=== PATIENT | female | born 1965 | race Caucasian/White ===

== ENCOUNTER 2016-07-26 09:08 | Emergency (ER) | payer OTHER ==
[2016-07-26 09:33] VITALS: BP 133/64
--- NOTE | 2016-07-26 10:26 | UC ---
Throat Pain/Nasal Nasim HPI - HPI Summary HPI Summary: complaint of nasal congestion , sore throat and cough that started 9 days ago cough has become productive and keep her up at night frequent headaches pain in her face and forehead for the last 2 days ears are mildly painful denies shortness of breath and wheezing has been taking sudafed with minimal relief has been using her nebulizer for coughing fits for several days 1xday - History of Current Complaint Chief Complaint: UCRespiratory Stated Complaint: UPPER RESPIRATORY Time Seen by Provider: 07/26/16 10:15 Hx Obtained From: Patient Hx Last Menstrual Period: 1.5weeks - Allergies/Home Medications Allergies/Adverse Reactions: Allergies Allergy/AdvReac Type Severity Reaction Status Date / Time Sulfa Drugs Allergy Severe Hives Verified 07/26/16 09:33 Clarithromycin [From Biaxin] Allergy Intermediate facial Verified 07/26/16 09:33 flushing Levofloxacin [From Levaquin] Allergy Intermediate facial Verified 07/26/16 09:33 flushing Aspirin Allergy See Comment Verified 07/26/16 09:34 Pregabalin [From Lyrica] Allergy See Comment Verified 07/26/16 09:35 Home Medications: Home Medications Albuterol 2.5MG/3ML (0.083%)* [Ventolin 2.5 MG/3 ML NEB.COLE*] 2.5 mg INH Q12H [History Confirmed 07/26/16] Ibuprofen TAB* [Motrin TAB* 800 MG] 1 tab PO BID 07/26/16 [History Confirmed 02/01] PMH/Surg Hx/FS Hx/Imm Hx Previously Healthy: Yes Endocrine History Of: Reports: Thyroid Disease Denies: Diabetes Cardiovascular History Of: Reports: Cardiac Disorders - sinus tach Respiratory History Of: Reports: Asthma, Pneumonia Denies: COPD, Pulmonary Embolism Psychological History Of: Denies: Schizophrenia Cancer History Of: Denies: Lung Cancer - Surgical History Surgical History: Yes Surgery Procedure, Year, and Place: septoplasty,, appendectomy, radiofrequency tx in neck. Breast augmentation 2006. sinus surgery 10/31 with tubes in ears - Family History Known Family History: Positive: Hypertension, Respiratory Disease - copd, asthma Negative: Cardiac Disease - Social History Occupation: Employed Full-time Lives: With Family Alcohol Use: Occasionally Substance Use Type: None Smoking Status (MU): Never Smoked Tobacco Review of Systems Constitutional: Negative Skin: Negative Eyes: Negative ENT: Sore Throat, Ear Ache, Nasal Discharge Respiratory: Cough Cardiovascular: Negative Gastrointestinal: Negative Genitourinary: Negative Motor: Negative Neurovascular: Negative Musculoskeletal: Negative Neurological: Headache Psychological: Negative All Other Systems Reviewed And Are Negative: Yes Physical Exam Triage Information Reviewed: Yes Appearance: No Pain Distress, Well-Nourished Vital Signs: Initial Vital Signs Temp 99.2 F 07/26/16 09:24 Pulse 66 07/26/16 09:24 Resp 18 07/26/16 09:24 BP 133/64 07/26/16 09:24 Pulse Ox 99 07/26/16 09:24 Vital Signs Reviewed: Yes Eyes: Positive: Conjunctiva Clear ENT: Positive: Pharyngeal erythema, Nasal congestion, Nasal drainage, TMs normal - ears tubes visualized bilaterally, Other: - maxillary sinus tenderness Neck: Positive: No Lymphadenopathy Respiratory: Positive: Lungs clear, Normal breath sounds, No respiratory distress. Negative: Rhonchi, Wheezing Cardiovascular: Positive: RRR, No Murmur, Pulses Normal Abdomen Description: Positive: Nontender, Soft Bowel Sounds: Positive: Present Musculoskeletal: Positive: No Edema Neurological: Positive: Alert Psychological Exam: Normal Skin Exam: Normal Throat Pain/Nasal Course/Dx - Course Course Of Treatment: exam completed. no wheezing or rhonchi. refuses prednisone at this time. will treat for sinusitis will followup with PCP if asthma worsens - Differential Dx/Diagnosis Differential Diagnosis/HQI/PQRI: Sinusitis, Other - asthma exacerbation Provider Diagnoses: sinusitis Discharge - Discharge Plan Condition: Stable Disposition: HOME Prescriptions: Amoxicillin/Clavulanate TAB* [Augmentin TAB 875*] 875 mg PO BID #20 tab Patient Education Materials: Sinusitis (ED), Asthma (ED) Referrals: Davey Toney DO [Primary Care Provider] - Additional Instructions: Please take antibiotic as directed Use your albuterol inhaler every 4-6 hours when needed for wheezing, shortness of breath or uncontrolled coughing. Increase fluids and rest Take acetaminophen or ibuprofen for fever or pain Please review your discharge instructions. If your symptoms do not improve please call your primary care provider or return to urgent care.
== END 2016-07-26 10:32 | disposition home or self-care (01) ==
LOC: UCCORT 09:08
DX: J32.9 Chronic sinusitis, unspecified (principal); Z88.6 Allergy status to analgesic agent; Z88.1 Allergy status to other antibiotic agents; Z88.2 Allergy status to sulfonamides; E07.9 Disorder of thyroid, unspecified; R00.0 Tachycardia, unspecified
CPT/HCPCS: 99212; G0463

== ENCOUNTER 2017-03-18 18:33 | Emergency (ER) | payer OTHER ==
[2017-03-18 19:33] VITALS: BP 148/73
--- NOTE | 2017-03-18 20:35 | UC ---
Throat Pain/Nasal Nasim HPI - HPI Summary HPI Summary: SIX DAYS OF WORSENING BILATERAL EAR PRESSURE AND PAIN. HAD UPPER RESPIRATORY INFECTION A MONTH AGO, SYMPTOMS WERE RESOLVING, NOW EAR PRESSURE IS WORSENING. PATEINT OF DR CONN, HAD TUBES PUT IN SEVERAL YEARS AGO. - History of Current Complaint Chief Complaint: UCEar Stated Complaint: EAR COMPLAINT Time Seen by Provider: 03/18/17 20:10 Hx Obtained From: Patient Hx Last Menstrual Period: 1.5weeks Onset/Duration: Gradual Onset, Lasting Weeks, Worse Since - 6 DAYS Severity: Moderate Cough: Nonproductive Associated Signs & Symptoms: Positive: Sinus Discomfort, Nasal Discharge - Epiglottits Risk Factors Epiglottis Risk Factors: Negative - Allergies/Home Medications Allergies/Adverse Reactions: Allergies Allergy/AdvReac Type Severity Reaction Status Date / Time Sulfa Drugs Allergy Severe Hives Verified 03/18/17 19:33 Clarithromycin [From Biaxin] Allergy Intermediate facial Verified 03/18/17 19:33 flushing Levofloxacin [From Levaquin] Allergy Intermediate facial Verified 03/18/17 19:33 flushing Aspirin Allergy See Comment Verified 03/18/17 19:33 Pregabalin [From Lyrica] Allergy See Comment Verified 03/18/17 19:33 Home Medications: Home Medications Nabumetone TAB* [Relafen TAB*] 500 mg PO BID 03/18/17 [History Confirmed ] PMH/Surg Hx/FS Hx/Imm Hx Previously Healthy: Yes - Surgical History Surgical History: Yes Surgery Procedure, Year, and Place: septoplasty,, appendectomy, radiofrequency tx in neck. Breast augmentation 2006. sinus surgery 10/31 with tubes in ears - Family History Known Family History: Positive: Hypertension, Respiratory Disease - copd, asthma Negative: Cardiac Disease - Social History Occupation: Employed Full-time Lives: With Family Alcohol Use: Occasionally Substance Use Type: None Smoking Status (MU): Never Smoked Tobacco Review of Systems Constitutional: Negative Skin: Negative ENT: Ear Ache, Sinus Congestion, Sinus Pain/Tenderness Respiratory: Cough Cardiovascular: Negative Gastrointestinal: Negative Genitourinary: Negative Motor: Negative Neurovascular: Negative Musculoskeletal: Negative Neurological: Negative Psychological: Negative Is Patient Immunocompromised?: No All Other Systems Reviewed And Are Negative: Yes Physical Exam Triage Information Reviewed: Yes Appearance: No Pain Distress, Well-Nourished, Ill-Appearing - MILDLY Vital Signs: Initial Vital Signs Temp 99.3 F 03/18/17 19:29 Pulse 60 03/18/17 19:29 Resp 16 03/18/17 19:29 BP 148/73 03/18/17 19:29 Pulse Ox 100 03/18/17 19:29 Vital Signs Reviewed: Yes Eye Exam: Normal ENT: Positive: Pharynx normal, Nasal congestion, Nasal drainage, TM bulging - BILATERAL, TM dull - BILATERAL Dental Exam: Normal Neck exam: Normal Neck: Positive: Supple, Nontender, No Lymphadenopathy Respiratory Exam: Normal Respiratory: Positive: Chest non-tender, Lungs clear, Normal breath sounds, No respiratory distress, No accessory muscle use Cardiovascular Exam: Normal Cardiovascular: Positive: RRR, No Murmur, Pulses Normal, Brisk Capillary Refill Abdominal Exam: Normal Musculoskeletal Exam: Normal Musculoskeletal: Positive: Strength Intact, ROM Intact Neurological Exam: Normal Psychological Exam: Normal Skin Exam: Normal Throat Pain/Nasal Course/Dx - Differential Dx/Diagnosis Differential Diagnosis/HQI/PQRI: Pharyngitis, Sinusitis, Tonsillitis, URI Provider Diagnoses: SINUSITIS; BILATERAL OTITIS MEDIA Discharge - Discharge Plan Condition: Stable Disposition: HOME Prescriptions: DOXYcycline CAP(*) [DOXYcycline 100MG CAP(*)] 100 mg PO BID #20 cap Fluticasone NASAL SPRAY 50MCG* [Flonase NASAL SPRAY 50MCG*] 2 spray BOTH NARES DAILY #1 btl Patient Education Materials: Sinusitis (ED), Serous Otitis Media (ED) Referrals: Stuart Billingsley MD [Medical Doctor] - Davey Toney DO [Primary Care Provider] -
== END 2017-03-18 20:34 | disposition home or self-care (01) ==
LOC: UCCORT 18:33
DX: H66.93 Otitis media, unspecified, bilateral (principal); J32.9 Chronic sinusitis, unspecified; Z88.6 Allergy status to analgesic agent; Z88.1 Allergy status to other antibiotic agents; Z88.2 Allergy status to sulfonamides
CPT/HCPCS: 99212; G0463

== ENCOUNTER 2017-08-03 19:04 | Emergency (ER) | payer BC, OTHER ==
[2017-08-03 20:05] VITALS: BP 132/76
--- NOTE | 2017-08-03 20:43 | UC ---
Throat Pain/Nasal Nasim HPI - HPI Summary HPI Summary: Patient to urgent care [facility] complaining of chills myalgia and sore throat feels exactly like her previous strep pharyngitis. Patient has chronic sinus pain and this does not feel like usual postnasal drip discomfort - History of Current Complaint Chief Complaint: UCGeneralIllness Stated Complaint: SORE THROAT Time Seen by Provider: 08/03/17 20:32 Hx Obtained From: Patient Hx Last Menstrual Period: 1.5weeks ?: No Onset/Duration: Sudden Onset, Lasting Days - 1 Severity: Moderate Pain Intensity: 7 Pain Scale Used: 0-10 Numeric Cough: None Associated Signs & Symptoms: Positive: Sinus Discomfort - Chronic Related History: Prior ENT Surgery - Allergies/Home Medications Allergies/Adverse Reactions: Allergies Allergy/AdvReac Type Severity Reaction Status Date / Time aspirin Allergy Tinnitus Verified 08/03/17 20:06 clarithromycin Allergy Facial Verified 08/03/17 20:06 Redness/Flushing levofloxacin Allergy Facial Verified 08/03/17 20:06 Redness/Flushing pregabalin Allergy Swelling Verified 08/03/17 20:06 Sulfa (Sulfonamide Allergy Hives Verified 08/03/17 20:06 Antibiotics) Home Medications: Home Medications Ipratropium [place] [Ipratropium [place]] 0.03 % NA DAILY 08/03/17 [History Confirmed 08/03/17] PMH/Surg Hx/FS Hx/Imm Hx Previously Healthy: No - chronic muscular pain Endocrine History: Hypothyroidism Respiratory History: Asthma - Surgical History Surgical History: Yes Surgery Procedure, Year, and Place: septoplasty,, appendectomy, radiofrequency tx in neck. Breast augmentation 2006. sinus surgery 10/31 with tubes in ears - Family History Known Family History: Positive: Hypertension, Respiratory Disease - copd, asthma Negative: Cardiac Disease - Social History Occupation: Employed Full-time Lives: With Family Alcohol Use: Occasionally Substance Use Type: None Smoking Status (MU): Never Smoked Tobacco Review of Systems Constitutional: Chills, Fatigue Skin: Negative Eyes: Negative ENT: Sore Throat Respiratory: Negative Cardiovascular: Negative Gastrointestinal: Negative Genitourinary: Negative Motor: Negative Neurovascular: Negative Musculoskeletal: Negative Neurological: Negative Psychological: Negative Is Patient Immunocompromised?: No All Other Systems Reviewed And Are Negative: Yes Physical Exam Triage Information Reviewed: Yes Appearance: Well-Appearing, No Pain Distress, Well-Nourished Vital Signs: Initial Vital Signs Temp 99.2 F 08/03/17 19:54 Pulse 76 08/03/17 19:54 Resp 15 08/03/17 19:54 BP 132/76 08/03/17 19:54 Pulse Ox 100 08/03/17 19:54 Vital Signs Reviewed: Yes Eye Exam: Normal Eyes: Positive: Conjunctiva Clear ENT Exam: Normal ENT: Positive: Normal ENT inspection, Hearing grossly normal, Pharynx normal, Nasal congestion, TMs normal, Sinus tenderness, Uvula midline. Negative: Tonsillar swelling, Tonsillar exudate, Trismus, Muffled voice, Hoarse voice, Dental tenderness Dental Exam: Normal Neck exam: Normal Neck: Positive: Supple, Nontender, No Lymphadenopathy Respiratory Exam: Normal Respiratory: Positive: Chest non-tender, Lungs clear, Normal breath sounds, No respiratory distress, No accessory muscle use Cardiovascular Exam: Normal Cardiovascular: Positive: RRR, No Murmur, Pulses Normal, Brisk Capillary Refill Musculoskeletal Exam: Normal Musculoskeletal: Positive: Strength Intact, ROM Intact, No Edema Neurological Exam: Normal Neurological: Positive: Alert, Muscle Tone Normal Psychological Exam: Normal Skin Exam: Normal Diagnostics - Laboratory Diagnostic Studies Completed/Ordered: Rapid strep negative Throat Pain/Nasal Course/Dx - Course Assessment/Plan: Continue current treatment, Tylenol ibuprofen for pain follow with PCP when necessary increase fluids and rest - Differential Dx/Diagnosis Provider Diagnoses: Sore throat Discharge - Sign-Out/Discharge Documenting (check all that apply): Discharge - Discharge Plan Condition: Stable Disposition: HOME Patient Education Materials: Viral Syndrome (ED), Postnasal Drip (DC) Referrals: Davey Toney DO [Primary Care Provider] - If Needed - Billing Disposition and Condition Condition: STABLE Disposition: HOME
== END 2017-08-03 21:05 | disposition home or self-care (01) ==
LOC: UCCORT 19:04
DX: J02.9 Acute pharyngitis, unspecified (principal); Z88.6 Allergy status to analgesic agent; Z88.1 Allergy status to other antibiotic agents; Z88.2 Allergy status to sulfonamides; Z88.8 Allergy status to other drugs, medicaments and biological substances
CPT/HCPCS: 87651; 99212; G0463

== ENCOUNTER 2018-06-15 09:32 | Emergency (ER) | payer BC ==
--- OUTSIDE RECORDS SUMMARY | 2018-06-15 09:41 | XMS REPORT | Continuity of Care Document ---
:1965 External Reference #:[id number] Author Name Davey Toney DO Address [address] [place] [address] Care Team Providers Name Role Phone Davey Toney DO Care Team Information Assistive Technology Specialist Unavailable Payers Date Identification Numbers Payment Provider Subscriber Effective: 2018 Policy Number: [id number] [facility] Ppo Theresa Frannie Jeremias PayID: [id number] [address] [address] [place] [address] Effective: 2014 Policy Number: [id number] DO Not Use - Pomcdanielle Mcdowell Expires: 2017 PayID: [id number] [address] [place] [address] Advance Directives Description No Information Available Problems Date Description Provider Status Onset: 04/09/2014 Hypothyroidism Davey Toney DO Active Onset: 04/09/2014 Raynaud's disease Davey Toney DO Active Onset: 04/09/2014 Cervical disc disorder Davey Toney DO Active Onset: 04/09/2014 Obstructive sleep apnea syndrome Davey Toney DO Active Onset: 04/09/2014 Collagen disease Davey Toney DO Active Onset: 04/09/2014 Rheumatoid arthritis Davey Toney DO Active Onset: 04/09/2014 Irritable bowel syndrome Davey Toney DO Active Onset: 04/09/2014 Meniere's disease Davey Toney DO Active Onset: 04/09/2014 Chronic sinusitis Davey Toney DO Active Onset: 04/09/2014 Chronic fatigue syndrome Davey Toney DO Active Onset: 04/09/2014 Allergic rhinitis Davey Toney DO Active Onset: 04/09/2014 Asthma without status asthmaticus Davey Toney DO Active Onset: 04/09/2014 Fibromyositis Davey Toney DO Active Onset: 04/09/2014 Gastroesophageal reflux disease Davey Toney DO Active Onset: 05/15/2014 Myalgia & Myositis Unspecified Davey Toney DO Active Onset: 01/07/2015 Fibromyalgia Davey Toney DO Active Onset: 05/15/2014 Peptic reflux disease Davey Toney DO Active Onset: 05/15/2014 Hypothyroidism Davey Toney DO Active Onset: 05/15/2014 Allergic rhinitis due to pollen Davey Toney DO Active Family History Date Family Member(s) Observation Comments Father Tuberculosis : (age 50 Father due to Cancer, Years) Pancreatic Mother Hypertension Mother COPD Mother Obesity First Brother Asthma Maternal Grandmother Diabetes, Adult Maternal Grandmother Heart Disease Maternal Grandmother Obesity Maternal Aunts Diabetes, Adult Maternal Aunts Cancer Social History Type Date Description Comments Sex Unknown Marital Status 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 [employer] ETOH Use Consumes 3 glasses of wine per week Recreational Drug Use Denies Drug Use Allergies, Adverse Reactions, Alerts Date Description Reaction Status Severity Comments 04/09/2014 Biaxin Active 04/09/2014 Levaquin Active 04/09/2014 Aspirin Active 04/09/2014 Lyrica Active 04/09/2014 Indomethacin Active 04/09/2014 Citalopram Active 04/09/2014 Theophylline Active 01/28/2015 Sulfa Drugs Active Medications Medication Date Status Form Strength Qnty SIG Indications Ordering Provider Metaxalone 05/16 Active Tablets 800mg 30tab 1 By M54.2 Feng, s Mouth Davey, Every DO Night AT Bedtime Prednisone 01/04 Active Tablets 5mg 1 by [place], mouth Jianghong every day DR Yung Metformin HCL 12/20 Active Tablets 500mg 90tab Take 1 Feng, s Tablet By Davey Mouth DO Every Day Pantoprazole 11/[address] 40mg 30tab Take 1 Toney, Sodium s Tablet By Davey, Mouth DO Every Day Furosemide 11/10 Active Tablets 20mg 90tab 1 By Feng s Mouth Davey, Every Day DO Albuterol Sulfate 07/03 Active Nebulizer (2.5mg/3M 75ml use 1 L) 0.083% vial via Davey, nebulizer DO every 4 hours as needed for cough, for shortness of breath, wheezing Valacyclovir HCL 12/19 Active Tablets 1gm 12tab Take 2 Feng s Tablets Davey, By Mouth DO Twice A Day X 1 Day as Needed Outbreak Of Cold Sores Pramipexole Active Tablets 0.125mg 180ta 2 po qhs Unknown Dihydrochloride / bs prn restless legs Meclizine HCL Active Tablets 25mg 60tab take 1/2 Unknown / s to 1 pill up to three times a day as needed for dizziness . Ventolin HFA Active Aerosol 108(90Bas 3unit 2 puffs e) s by mouth Davey, mcg/Act every 4 DO hours as needed Vitamin D3 Super Active Tablets 2000Unit 1 by Unknown Strength / mouth every day Levothyroxine Active Tablets 75mcg 90tab 1 By Raudel Toney s Mouth Davey, Every Day DO Nabumetone Active Tablets 500mg take one Unknown tablet by mouth twice daily with food Calcium/Magnesium Active Tablets 1 PO qd Unknown /Zinc / Oxycodone HCL 11/29 Hx Tablets 5mg 30tab 1 by Feng s mouth Davey, - every 8 DO 06/06 hours needed for severe pain Doxycycline 10/23 Hx Tablets 100mg 42tab 1 by Feng Monohydrate s mouth Davey, - twice a DO Azithromycin 04/26 Hx Tablets 500mg 7tabs 1 by J01.90 Toney mouth Davey, - every day DO 05/03 Amoxicillin/Clavu 03/24 Hx Tablets ER 1000-62.5 20tab 1 po bid Feng lanate 12HR mg s Davey, ER - DO 04/03 Prednisone 03/22 Hx Tablets 20mg 10tab 2 by J01.90 Toney, s mouth Davey, - with food DO 03/27 once a /2016 day Amoxicillin/Clavu 02/10 Hx Tablets 875-125mg 14tab 1 by Feng lanate Potassium s mouth Davey, - twice a DO 02/17 day x days Doxycycline 09/16 Hx Tablets 100mg 14tab 1 by Feng Monohydrate s mouth Davey, - twice a DO Amoxicillin/Clavu 06/15 Hx Tablets 875-125mg 20tab 1 by J01.90 Feng lanate Potassium s mouth Davey, - twice a DO Crutch/Aluminum/A 02/02 Hx Misc 1unit fit M25.571 Feng dult/Push-Button s crutches Davey, Adj - to DO 02/07 for ambulatio n due to r foot sprain Prednisone 09/19 Hx Tablets 20mg 5tabs 1 by J01.90 Feng, mouth Davey, - with food DO 09/29 once a day Augmentin 09/02 Hx Tablets 875-125mg 20tab 1 by Feng, s mouth Davey, - twice a DO 09/12 day for 10 days Wrist 07/28 Hx Misc 1unit apply to M25.539 Feng, Splint/Cock-Up/LE /2015 s l wrist Davey, FT/Canvas/Medium - at night DO 08/02 and during the day during aggravati ng activitie s Wrist 07/28 Hx Misc 1unit apply to M25.539 Feng Splint/Cock-Up/RI /2015 s r wrist Davey, GHT/Canvas/Medium - at night DO 08/02 and during the day during aggravati ng activitie s Skelaxin 07/14 Hx Tablets 800mg 30tab 1 By M54.2 Feng, s Mouth Davey, - Every DO 05/16 Night AT /2019 Bedtime Azithromycin 07/03 Hx Tablets 500mg 7tabs 1 by J01.90 Feng, mouth Davey, - every day DO 07/10 Prednisone 07/02 Hx Tablets 20mg 14tab 2 by Feng s mouth Davey, - with food DO 07/09 once a day in the morning Azithromycin 06/03 Hx Tablets 500mg 7tabs 1 by J01.90 Feng mouth Davey, - every day DO 06/10 Azithromycin 05/20 Hx Tablets 500mg 7tabs 1 by J01.90 Feng mouth Davey, - every day DO 05/27 Augmentin 05/07 Hx Tablets 875-125mg 20tab 1 by Feng s mouth Davey, - twice a DO 05/17 day 10 days Prednisone 04/17 Hx Tablets 20mg 14tab 2 by J45.901 Valeri Sol christian MD - daily, 04/24 take with food, watch for stomach upset, avoid alcohol Doxycycline 04/08 Hx Tablets 100mg 28tab 1 by J20.9 Leslie Toneyate s mouth Davey, - twice a DO Doxycycline 03/25 Hx Tablets 100mg 14tab 1 by J20.9 Feng Monohydrate s mouth Davey, - twice a DO Doxycycline 01/28 Hx Tablets 100mg 20tab 1 by Lora Toney s mouth Davey, - twice a DO Gentamicin 01/28 Hx Solution 0.3% 1unit 1-2 drops H10.9 Feng s in the Davey, - eyes DO 02/02 every hours as needed Gabapentin 12/16 Hx Tablets 600mg 90tab Take 1 M79.7 Feng s Tablet By Davey, - Mouth DO 02/02 Times Daily Doxycycline 12/06 Hx Tablets 100mg 42tab 1 by Lora Toney s mouth Davey, - twice a DO 12/27 day x days Gabapentin 11/19 Hx Capsules 300mg 60cap 2 by 729.1 Feng s mouth Davey, - twice a DO Fluticasone 11/19 Hx Suspension 50mcg/Act 1unit 1 spray J30.9 Feng, Propionate s each Davey, - nostril DO 06/06 1-2 times /2018 a day Voltaren 10/24 Hx Gel 1% 3unit Apply 4 719.46 Toney, s grams to Davey, - the knees DO 11/19 up to every 6 hours as needed. Triamterene/Scotrun 10/08 Hx Tablets 37.5-25mg 90tab 1 by Fneg chlorothiazide s mouth Davey, - every day DO 06/30 Hydrocodone-Aceta 08/29 Hx Tablets 10-325mg 90tab 1 by 729.1 Toney, minophen s mouth Davey, - every 8 DO 10/24 hours needed Amitriptyline HCL 08/19 Hx Tablets 25mg 30tab 1 by Toney, s mouth Davey, - every DO 10/08 night at bedtime Hydrocodone-Aceta 07/08 Hx Tablets 7.5-325mg 90tab 1 by 729.1 Toney, minophen s mouth Davey, - every 8 DO 08/29 hours needed Hydrocodone-Aceta 06/13 Hx Tablets 5-325mg 30tab 1 every 729.1 Toney, minophen s 12 hours Davey, - as needed DO 07/08 Hydrocodone-Aceta 06/13 Hx Tablets 5-325mg 30tab 1 every Toney, minophen s 12 hours Davey, - as needed DO 07/31 Omeprazole 04/[address] 40mg 30cap Take 1 , s Capsule Davey, - By Mouth DO 11/29 Every Ventolin HFA Hx Aerosol 108mcg/Ac 3unit 2 puffs Unknown /0000 t s by mouth - every 4 08/19 hours needed Triamterene/Scotrun Hx Tablets 37.5-25 45tab 1 by Unknown chlorothiazide / s mouth - every 08/19 Orencia Hx Solution 250mg 1unit 125 mL Unknown /0000 Rec s once a - week- per 07/31 Rheumatol /2014 ogy Lo/Ovral-28 Hx Tablets 30tab 1 by Unknown /0000 s mouth - every day 07/28 Chlorpheniramine 00 Hx Tablets 4mg 1 po Unknown Maleate /0000 daily - 08/29 Ibuprofen Hx Tablets 200mg Up to 4 Unknown /0000 po tid - prn pain 06/30 Anoro Ellipta Hx Aerosol 62.5-25mc 1unit one puff Toney, /0000 g/Inh s daily Davey, - DO 02/11 Orencia Hx Solution 250mg 1unit 125 mL Unknown /0000 Rec s once a - week- per 08/29 Rheumatol ogy Loratadine Hx Tablets 10mg 1 by Unknown /0000 mouth - every day 01/17 Famotidine Hx Tablets 20mg 1 by Unknown /0000 mouth - every day 01/17 Triamterene/Scotrun Hx Tablets 37.5-25 45tab 1 by Feng chlorothiazide /0000 s mouth Davey, - every DO 10/08 Orencia Hx Solution 250mg 1unit 125 mL Unknown /0000 Rec s once a - week- per 09/16 Rheumat ogy Biotin Hx Capsules 5000mcg 1 by Unknown /0000 mouth - every day 01/17 Vitamin B12 Hx Tablets 1 by Unknown /0000 mouth - every day 06/30 Phentermine HCL Hx Capsules 30mg 1 by Unknown /0000 mouth - every day 06/30 D[address]lofenac Sodium Hx Tablets DR 75mg 1 po bid Unknown /0000 - 10/25 Magnesium Hx Capsules 500mg 1 by Unknown /0000 mouth - every day 01/17 Zinc Hx Tablets 50mg 1 by Unknown /0000 mouth - every day 01/17 Medications Administered in Office Medication Date Status Form Strength Qnty SIG Indications Ordering Provider Depo Medrol 80 Administered Injection MG Marycruz Toney DO Immunizations CPT Code Status Date Vaccine Lot # [id number] Given 06/06/2018 Pneumococcal 23 Immunization Adult Or [id number] Immunosuppressed Patient 75644 Given 06/06/2018 Tdap (Adacel) Ages 7 And Above Only [id number] Given 02/22/2018 Influenza Vac, Quadrivalent, Split, 0.5mL Dosage, Im Use [id number] Given 03/13/2017 Afluria Imunization Q2035 Refused 01/18/2018 Afluria Imunization Vital Signs Date Vital Result Comment 06/06/2018 8:35am Weight 204.00 lb Heart Rate 76 /min BP Systolic 154 mmHg BP Diastolic 78 mmHg Respiratory Rate 18 /min Height 64.5 inches 5'4.50" BMI (Body Mass Index) 34.5 kg/m2 05/16/2018 8:36am Weight 204.00 lb Heart Rate 72 /min BP Systolic 118 mmHg BP Diastolic 68 mmHg Respiratory Rate 18 /min 04/04/2018 8:36am Weight 202.00 lb Heart Rate 76 /min BP Systolic 108 mmHg BP Diastolic 68 mmHg Respiratory Rate 18 /min Height 64.5 inches 5'4.50" BMI (Body Mass Index) 34.1 kg/m2 01/18/2018 4:22pm Weight 198.00 lb Heart Rate 74 /min BP Systolic 116 mmHg BP Diastolic 62 mmHg Respiratory Rate 17 /min Height 64.5 inches 5'4.50" BMI (Body Mass Index) 33.5 kg/m2 12/20/2017 8:12am Body Temperature 98.3 F Weight 194.00 lb Heart Rate 78 /min BP Systolic 112 mmHg BP Diastolic 56 mmHg Respiratory Rate 18 /min Height 64.5 inches 5'4.50" BMI (Body Mass Index) 32.8 kg/m2 11/29/2017 8:32am Weight 194.00 lb Heart Rate 72 /min BP Systolic 110 mmHg BP Diastolic 58 mmHg Respiratory Rate 17 /min Height 64.5 inches 5'4.50" BMI (Body Mass Index) 32.8 kg/m2 10/25/2017 8:33am Weight 193.00 lb Heart Rate 84 /min BP Systolic 138 mmHg BP Diastolic 78 mmHg Respiratory Rate 17 /min Height 64.5 inches 5'4.50" BMI (Body Mass Index) 32.6 kg/m2 08/09/2017 8:40am Weight 194.00 lb Heart Rate 70 /min BP Systolic 128 mmHg BP Diastolic 74 mmHg Respiratory Rate 18 /min Height 64.5 inches 5'4.50" BMI (Body Mass Index) 32.8 kg/m2 06/21/2017 8:38am Weight 194.00 lb Heart Rate 72 /min BP Systolic 118 mmHg BP Diastolic 74 mmHg Respiratory Rate 18 /min Height 64.5 inches 5'4.50" BMI (Body Mass Index) 32.8 kg/m2 05/24/2017 8:39am Weight 197.00 lb Heart Rate 68 /min BP Systolic 118 mmHg BP Diastolic 64 mmHg Respiratory Rate 17 /min Height 64.5 inches 5'4.50" BMI (Body Mass Index) 33.3 kg/m2 04/26/2017 8:37am Weight 196.00 lb Heart Rate 78 /min BP Systolic 96 mmHg BP Diastolic 58 mmHg Respiratory Rate 18 /min Height 64.5 inches 5'4.50" BMI (Body Mass Index) 33.1 kg/m2 03/22/2017 8:34am Weight 193.00 lb Heart Rate 78 /min BP Systolic 132 mmHg BP Diastolic 76 mmHg Respiratory Rate 18 /min Height 64.5 inches 5'4.50" BMI (Body Mass Index) 32.6 kg/m2 01/25/2017 8:38am Weight 195.00 lb Heart Rate 76 /min BP Systolic 110 mmHg BP Diastolic 62 mmHg Respiratory Rate 18 /min Height 64.5 inches 5'4.50" BMI (Body Mass Index) 33.0 kg/m2 12/21/2016 8:44am Weight 195.00 lb Heart Rate 80 /min BP Systolic 92 mmHg BP Diastolic 52 mmHg Respiratory Rate 17 /min Height 64.5 inches 5'4.50" BMI (Body Mass Index) 33.0 kg/m2 11/18/2016 8:31am Weight 194.00 lb Heart Rate 70 /min BP Systolic 128 mmHg BP Diastolic 70 mmHg Respiratory Rate 17 /min Height 64.5 inches 5'4.50" BMI (Body Mass Index) 32.8 kg/m2 09/16/2016 8:32am Weight 193.00 lb Heart Rate 88 /min BP Systolic 120 mmHg BP Diastolic 66 mmHg Respiratory Rate 18 /min Height 64.5 inches 5'4.50" BMI (Body Mass Index) 32.6 kg/m2 08/12/2016 4:05pm Weight 194.00 lb Heart Rate 74 /min BP Systolic 120 mmHg BP Diastolic 80 mmHg Respiratory Rate 18 /min Height 64.5 inches 5'4.50" BMI (Body Mass Index) 32.8 kg/m2 07/06/2016 8:33am Weight 194.00 lb Heart Rate 64 /min BP Systolic 110 mmHg BP Diastolic 68 mmHg Respiratory Rate 18 /min Height 64.5 inches 5'4.50" (01/2016) BMI (Body Mass Index) 32.8 kg/m2 06/15/2016 8:35am Weight 192.00 lb Heart Rate 78 /min BP Systolic 124 mmHg BP Diastolic 58 mmHg Respiratory Rate 17 /min Height 64.5 inches 5'4.50" (01/2016) BMI (Body Mass Index) 32.4 kg/m2 04/20/2016 8:37am Weight 192.00 lb Heart Rate 80 /min BP Systolic 126 mmHg BP Diastolic 70 mmHg Respiratory Rate 17 /min Height 64.5 inches 5'4.50" (01/2016) BMI (Body Mass Index) 32.4 kg/m2 03/30/2016 8:34am Weight 192.00 lb Heart Rate 62 /min BP Systolic 116 mmHg BP Diastolic 58 mmHg Respiratory Rate 17 /min Height 64.5 inches 5'4.50" (01/2016) BMI (Body Mass Index) 32.4 kg/m2 03/02/2016 8:34am Weight 188.00 lb Heart Rate 84 /min BP Systolic 98 mmHg BP Diastolic 58 mmHg Respiratory Rate 17 /min Height 64.5 inches 5'4.50" (01/2016) BMI (Body Mass Index) 31.8 kg/m2 2016 8:37am Weight 186.00 lb Heart Rate 68 /min BP Systolic 138 mmHg BP Diastolic 80 mmHg Respiratory Rate 17 /min Height 64.5 inches 5'4.50" (01/2016) BMI (Body Mass Index) 31.4 kg/m2 02/03/2016 8:32am Weight 189.00 lb Heart Rate 76 /min BP Systolic 114 mmHg BP Diastolic 58 mmHg Respiratory Rate 18 /min Height 64.5 inches 5'4.50" (01/2016) BMI (Body Mass Index) 31.9 kg/m2 12/30/2015 8:40am Weight 186.00 lb Heart Rate 72 /min BP Systolic 100 mmHg BP Diastolic 54 mmHg Respiratory Rate 18 /min Height 64.5 inches 5'4.50" BMI (Body Mass Index) 31.4 kg/m2 12/16/2015 8:34am Weight 185.00 lb Heart Rate 76 /min BP Systolic 112 mmHg L/Reg BP Diastolic 72 mmHg L/Reg Respiratory Rate 17 /min Height 64.5 inches 5'4.50" BMI (Body Mass Index) 31.3 kg/m2 12/02/2015 8:36am Weight 181.00 lb Heart Rate 74 /min BP Systolic 88 mmHg BP Diastolic 50 mmHg Respiratory Rate 17 /min Height 64.5 inches 5'4.50" BMI (Body Mass Index) 30.6 kg/m2 11/11/2015 8:36am Weight 185.00 lb Heart Rate 62 /min BP Systolic 122 mmHg BP Diastolic 62 mmHg Respiratory Rate 18 /min Height 64.5 inches 5'4.50" BMI (Body Mass Index) 31.3 kg/m2 10/28/2015 8:35am Weight 182.00 lb Heart Rate 76 /min BP Systolic 120 mmHg BP Diastolic 58 mmHg Respiratory Rate 18 /min Height 64.5 inches 5'4.50" BMI (Body Mass Index) 30.8 kg/m2 10/14/2015 8:39am Weight 180.00 lb Heart Rate 84 /min BP Systolic 102 mmHg BP Diastolic 52 mmHg Respiratory Rate 18 /min Height 64.5 inches 5'4.50" BMI (Body Mass Index) 30.4 kg/m2 09/30/2015 8:29am Weight 177.00 lb Heart Rate 90 /min BP Systolic 108 mmHg BP Diastolic 62 mmHg Respiratory Rate 18 /min Height 64.5 inches 5'4.50" BMI (Body Mass Index) 29.9 kg/m2 09/20/2015 8:48am Weight 176.06 lb Heart Rate 68 /min BP Systolic 102 mmHg BP Diastolic 60 mmHg Respiratory Rate 18 /min Height 64.5 inches 5'4.50" BMI (Body Mass Index) 29.8 kg/m2 08/12/2015 8:31am Weight 176.00 lb Heart Rate 80 /min BP Systolic 102 mmHg BP Diastolic 60 mmHg Respiratory Rate 17 /min Height 64.5 inches 5'4.50" BMI (Body Mass Index) 29.7 kg/m2 07/29/2015 8:33am Weight 173.00 lb Heart Rate 84 /min BP Systolic 124 mmHg BP Diastolic 68 mmHg Respiratory Rate 18 /min Height 64.5 inches 5'4.50" BMI (Body Mass Index) 29.2 kg/m2 07/15/2015 8:09am Weight 168.00 lb Heart Rate 74 /min BP Systolic 112 mmHg BP Diastolic 70 mmHg Respiratory Rate 18 /min Height 64.5 inches 5'4.50" BMI (Body Mass Index) 28.4 kg/m2 07/01/2015 8:45am Weight 171.00 lb Heart Rate 68 /min BP Systolic 110 mmHg BP Diastolic 64 mmHg Respiratory Rate 18 /min Height 64.5 inches 5'4.50" BMI (Body Mass Index) 28.9 kg/m2 06/17/2015 8:08am Weight 173.00 lb Heart Rate 78 /min BP Systolic 118 mmHg BP Diastolic 60 mmHg Respiratory Rate 17 /min Height 64.5 inches 5'4.50" BMI (Body Mass Index) 29.2 kg/m2 06/03/2015 8:36am Weight 172.00 lb Heart Rate 94 /min BP Systolic 100 mmHg BP Diastolic 58 mmHg Respiratory Rate 18 /min Height 64.5 inches 5'4.50" BMI (Body Mass Index) 29.1 kg/m2 05/20/2015 8:09am Body Temperature 98.0 F Weight 173.00 lb Heart Rate 84 /min BP Systolic 112 mmHg BP Diastolic 60 mmHg Respiratory Rate 18 /min Height 64.5 inches 5'4.50" O2 % BldC Oximetry 100 % BMI (Body Mass Index) 29.2 kg/m2 05/06/2015 8:07am Weight 171.00 lb Heart Rate 100 /min BP Systolic 122 mmHg BP Diastolic 62 mmHg Respiratory Rate 18 /min Height 64.5 inches 5'4.50" BMI (Body Mass Index) 28.9 kg/m2 04/22/2015 8:16am Body Temperature 98.8 F Weight 173.00 lb Heart Rate 86 /min BP Systolic 110 mmHg BP Diastolic 56 mmHg Respiratory Rate 17 /min Height 64.5 inches 5'4.50" O2 % BldC Oximetry 99 % BMI (Body Mass Index) 29.2 kg/m2 04/17/2015 10:49am Body Temperature 98.5 F Weight 173.00 lb Heart Rate 86 /min BP Systolic 112 mmHg BP Diastolic 70 mmHg Height 64.5 inches 5'4.50" O2 % BldC Oximetry 99 % Ra BMI (Body Mass Index) 29.2 kg/m2 04/08/2015 8:13am Body Temperature 99.9 F Weight 172.00 lb Heart Rate 98 /min BP Systolic 100 mmHg BP Diastolic 68 mmHg Height 64.5 inches 5'4.50" O2 % BldC Oximetry 98 % Ra BMI (Body Mass Index) 29.1 kg/m2 03/25/2015 8:13am Weight 171.00 lb Heart Rate 80 /min BP Systolic 110 mmHg BP Diastolic 60 mmHg Respiratory Rate 18 /min Height 64.5 inches 5'4.50" BMI (Body Mass Index) 28.9 kg/m2 03/11/2015 8:10am Weight 174.00 lb Heart Rate 88 /min BP Systolic 86 mmHg BP Diastolic 48 mmHg BP Systolic Recheck 90 mmHg BP Diastolic Recheck 50 mmHg Respiratory Rate 17 /min 02/25/2015 8:10am Body Temperature 97.0 F Weight 176.00 lb Heart Rate 84 /min BP Systolic 112 mmHg BP Diastolic 64 mmHg Respiratory Rate 18 /min 02/11/2015 8:12am Weight 180.00 lb Heart Rate 66 /min BP Systolic 102 mmHg BP Diastolic 60 mmHg Respiratory Rate 18 /min Height 64.5 inches 5'4.50" (03/2014) BMI (Body Mass Index) 30.4 kg/m2 01/28/2015 8:14am Weight 185.00 lb Heart Rate 84 /min BP Systolic 118 mmHg BP Diastolic 58 mmHg Respiratory Rate 18 /min Height 64.5 inches 5'4.50" (03/2014) BMI (Body Mass Index) 31.3 kg/m2 01/07/2015 8:08am Weight 181.00 lb Heart Rate 84 /min BP Systolic 128 mmHg BP Diastolic 64 mmHg Respiratory Rate 18 /min Height 64.5 inches 5'4.50" (03/2014) BMI (Body Mass Index) 30.6 kg/m2 12/24/2014 8:03am Weight 185.00 lb Heart Rate 80 /min BP Systolic 120 mmHg BP Diastolic 64 mmHg Respiratory Rate 18 /min Height 64.5 inches 5'4.50" (03/2014) BMI (Body Mass Index) 31.3 kg/m2 12/10/2014 8:11am Weight 183.00 lb Heart Rate 78 /min BP Systolic 124 mmHg BP Diastolic 66 mmHg Respiratory Rate 18 /min Height 64.5 inches 5'4.50" (03/2014) BMI (Body Mass Index) 30.9 kg/m2 11/19/2014 8:05am Weight 178.00 lb Heart Rate 88 /min BP Systolic 118 mmHg BP Diastolic 62 mmHg Respiratory Rate 18 /min Height 64.5 inches 5'4.50" (03/2014) BMI (Body Mass Index) 30.1 kg/m2 11/05/2014 8:03am Weight 175.00 lb Heart Rate 72 /min BP Systolic 130 mmHg BP Diastolic 70 mmHg Respiratory Rate 18 /min Height 64.5 inches 5'4.50" (03/2014) BMI (Body Mass Index) 29.6 kg/m2 10/24/2014 4:21pm Weight 174.00 lb Heart Rate 78 /min BP Systolic 124 mmHg BP Diastolic 70 mmHg Respiratory Rate 17 /min Height 64.5 inches 5'4.50" (03/2014) BMI (Body Mass Index) 29.4 kg/m2 10/08/2014 8:04am Weight 173.00 lb Heart Rate 100 /min BP Systolic 116 mmHg BP Diastolic 58 mmHg Respiratory Rate 18 /min Height 64.5 inches 5'4.50" (03/2014) BMI (Body Mass Index) 29.2 kg/m2 09/16/2014 4:13pm Weight 176.00 lb Heart Rate 76 /min BP Systolic 134 mmHg BP Diastolic 80 mmHg Respiratory Rate 17 /min Height 64.5 inches 5'4.50" (03/2014) BMI (Body Mass Index) 29.7 kg/m2 08/29/2014 4:26pm Weight 173.00 lb Heart Rate 90 /min BP Systolic 140 mmHg BP Diastolic 86 mmHg Respiratory Rate 18 /min Height 64.5 inches 5'4.50" (03/2014) BMI (Body Mass Index) 29.2 kg/m2 07/31/2014 4:19pm Weight 173.00 lb Heart Rate 80 /min BP Systolic 126 mmHg BP Diastolic 60 mmHg Respiratory Rate 17 /min Height 64.5 inches 5'4.50" (03/2014) BMI (Body Mass Index) 29.2 kg/m2 07/08/2014 4:15pm Weight 172.00 lb Heart Rate 68 /min BP Systolic 146 mmHg BP Diastolic 84 mmHg Respiratory Rate 17 /min Height 64.5 inches 5'4.50" (03/2014) BMI (Body Mass Index) 29.1 kg/m2 06/13/2014 4:15pm Weight 176.00 lb Heart Rate 84 /min BP Systolic 148 mmHg BP Diastolic 78 mmHg Respiratory Rate 18 /min Height 64.5 inches 5'4.50" (03/2014) BMI (Body Mass Index) 29.7 kg/m2 05/30/2014 4:20pm Weight 173.00 lb Heart Rate 76 /min BP Systolic 116 mmHg BP Diastolic 66 mmHg Respiratory Rate 18 /min Height 64.5 inches 5'4.50" (03/2014) BMI (Body Mass Index) 29.2 kg/m2 05/15/2014 4:10pm Weight 171.00 lb Heart Rate 98 /min BP Systolic 136 mmHg BP Diastolic 78 mmHg Respiratory Rate 18 /min Height 64.5 inches 5'4.50" (03/2014) BMI (Body Mass Index) 28.9 kg/m2 04/09/2014 3:55pm Weight 169.00 lb Heart Rate 84 /min BP Systolic 136 mmHg BP Diastolic 80 mmHg Respiratory Rate 18 /min Height 64.5 inches 5'4.50" (03/2014) Results Test Date Facility Test Result H/L Range Note Xray 06/06/2018 [facility] [place], Complete, <pending> [address] [place] [address] [phone] - Hemoglobin A1c [facility] 6.0 % High 4.1-5.9 Estimated Average Glucose Calc 126 mg/dL 71-140 Comprehensive Met Panel-[facility] 11/29/2017 [facility] Sodium 141 mmol/L 135- 146 1 Potassium 3.8 mmol/L 3.5-5.2 Chloride# 104 mmol/L 97-110 2 Carbon Dioxide 27 mmol/L 24-34 Glucose 101 mg/dL 70-105 BUN 15 mg/dL 6-26 Creatinine 1.0 mg/dL 0.5-1.4 Calcium 9.6 mg/dL 8.5-10.2 Total Protein 6.4 g/dL 6.0-8.0 Albumin 4.2 g/dL 3.6-4.9 Globulin 2.2 g/dL 2.0-3.5 A/G Ratio 1.9 Ratio 1.0-2.2 Total Bilirubin 0.5 mg/dL 0.1-1.3 Alkaline Phosphatase 91 U/L 24-140 Alt 10 U/L 3-42 Ast 13 U/L 8-42 Jacqueline Egfr >60 >60 3 Non Jacqueline Egfr >60 >60 4 Anion Gap 10 mmol/L 5-15 5 Laboratory test finding 11/29/2017 [facility] Antibody Igg Negative Negative Hemoglobin A1c 11/29/2017 [facility] Hemoglobin A1c 6.0 % High 4.1-5.9 Estimated Average Glucose Calc 126 mg/dL 71-140 Laboratory test finding 11/29/2017 [facility] Esr 27 mm/hr High 0-20 CRP (C-Reactive) 0.38 mg/dL 0.00-0.75 [place] Igm/Igg AB -RL 11/29/2017 [facility] [place] Igm/Igg AB @ NEGATIVE (Neg) 6 Laboratory test 11/29/2017 [facility] TSH 3.57 uIU/mL 0.35-4.94 finding Vitamin B12 358 pg/mL 180-914 Free T4 1.14 ng/dL 0.70-1.48 T3 Total 1.1 ng/mL (0.7-1.9) 7 CBC with Auto Diff-fcmg 11/29/2017 [facility] WBC 4.7 K/uL 4.1-11.0 RBC 4.72 M/uL 4.00-5.40 Hemoglobin 13.6 gm/dL 12.0-16.0 Hematocrit 40.5 % 36.0-47.0 MCV 85.8 fL 80.0-97.0 MCH 28.8 pg 27.0-32.0 MCHC 33.6 g/dL 32.0-36.0 RDW 13.8 % 11.5-14.5 PLT Count 213 K/ul 140-400 MPV 8.6 FL 7.1-10.7 Neutrophil 69.0 % 35.0-75.0 Lymphocyte 22.5 % 16.0-52.0 Monocyte 5.0 % 2.0-10.0 Eosinophil 2.5 % 0.0-5.0 Basophil 1.0 % 0.0-4.0 Abs Neutrophils 3.3 K/uL 2.1-8.0 Abs Lymphocytes 1.1 K/uL 0.8-5.5 Abs Monocytes 0.2 K/uL 0.1-1.0 Abs Eosinophils 0.1 K/uL 0.0-0.5 Abs Basophils 0.0 K/uL 0.0-0.3 Heavy Metal SC 09/20/2017 [facility] Lead,Blood 1 g/dL 0-19 8, 9 Blood-RL (315)- - Arsenic,Blood 5 ug/L 2-23 10 Mercury (B) None Detected ug/L 0.0-14.9 11 Hepatic Panel (LFT) 09/16/2017 [facility] Total Protein 6.3 g/dL 6.0-8.0 Albumin 4.3 g/dL 3.6-4.9 Total Bilirubin 0.3 mg/dL 0.1-1.3 Direct Bilirubin 0.1 mg/dL 0.0-0.4 Alkaline Phosphatase 81 U/L 24-140 Alt 12 U/L 3-42 Ast 14 U/L 8-42 Iron Panel 09/16/2017 [facility] Iron, Total 60 g/dL 50-170 Transferrin 279.0 mg/dL 203.0-362.0 Tibc (calc) 391 g/dL 261-478 % Iron Saturation 15.4 % 13.0-45.0 Laboratory test finding 09/16/2017 [facility] Ferritin 32.5 ng/ml 11.0- 306.0 Laboratory test finding 01/25/2017 [facility] TSH 2.06 uIU/mL 0.35-4.94 CCP Antibody Igg Negative Negative CRP (C-Reactive) 0.53 mg/dL 0.00-0.75 Esr 15 mm/hr 0-20 Comprehensive Met Panel-FCMG 01/25/2017 [facility] Sodium 142 mmol/L 135- 146 12 Potassium 3.8 mmol/L 3.5-5.2 Chloride# 105 mmol/L 97-110 13 Carbon Dioxide 25 mmol/L 24-34 Glucose 105 mg/dL 70-105 Creatinine 0.9 mg/dL 0.5-1.4 Calcium 9.5 mg/dL 8.5-10.2 Total Protein 6.3 g/dL 6.0-8.0 Albumin 4.2 g/dL 3.6-4.9 Globulin 2.1 g/dL 2.0-3.5 A/G Ratio 2.0 Ratio 1.0-2.2 Total Bilirubin 0.6 mg/dL 0.1-1.3 Alkaline Phosphatase 88 U/L 24-140 Alt 10 U/L 3-42 Ast 13 U/L 8-42 Jacqueline Egfr >60 >60 14 Non Jacqueline Egfr >60 >60 15 Anion Gap 12 mmol/L 7-16 16 BUN 16 mg/dL 6-26 Lyme Igm/Igg AB -RL 01/25/2017 [facility] Lyme Igm/Igg AB @ NEGATIVE (Neg) 17 Laboratory test 06/15/2016 [facility] CRP (C-Reactive) 0.78 mg/dL High 0.00- 0.75 finding Esr 11 mm/hr 0-20 CCP Antibody Igg Negative Negative CBC With Auto Diff 06/15/2016 [facility] WBC 4.5 K/uL 4.1-11.0 RBC 4.80 M/uL 4.00-5.40 Hemoglobin 14.1 gm/dL 12.0-16.0 Hematocrit 41.6 % 36.0-47.0 MCV 86.8 fL 80.0-97.0 MCH 29.5 pg 27.0-32.0 MCHC 34.0 g/dL 32.0-36.0 RDW 13.6 % 11.5-14.5 PLT Count 226 K/ul 140-400 Neutrophil 65.1 % 35.0-75.0 Lymphocyte 24.1 % 16.0-52.0 Monocyte 6.9 % 2.0-10.0 Eosinophil 2.0 % 0.0-5.0 Basophil 1.9 % 0.0-4.0 Abs Neutrophils 2.9 K/uL 2.1-8.0 Abs Lymphocytes 1.1 K/uL 0.8-5.5 Abs Monocytes 0.3 K/uL 0.1-1.0 Abs Eosinophils 0.1 K/uL 0.0-0.5 Abs Basophils 0.1 K/uL 0.0-0.3 Comprehensive Metabolic (CMP) 06/15/2016 [facility] Sodium 142 mmol/L 134- 142 Potassium 4.0 mmol/L 3.5-5.2 Chloride 105 mmol/L 97-109 Carbon Dioxide 29 mmol/L 24-34 Glucose 87 mg/dL 70-105 BUN 21 mg/dL 6-26 Creatinine 0.9 mg/dL 0.5-1.4 Calcium 9.6 mg/dL 8.5-10.2 Total Protein 6.4 g/dL 6.0-8.0 Albumin 4.2 g/dL 3.6-4.9 Globulin 2.2 g/dL 2.0-3.5 A/G Ratio 1.9 Ratio 1.0-2.2 Total Bilirubin 0.4 mg/dL 0.1-1.3 Alkaline Phosphatase 86 U/L 24-140 Alt 10 U/L 3-42 Ast 13 U/L 8-42 Anion Gap 12 mmol/L 6-14 Jacqueline Egfr >60 >60 18 Non Jacqueline Egfr >60 >60 19 Laboratory test finding 06/15/2016 [facility] TSH 2.87 uIU/mL 0.35-4.94 Hemoglobin A1c 5.7 % 4.1-5.9 Laboratory test finding 11/11/2015 [facility] Esr 11 mm/hr 0-20 20 CRP (C-Reactive) 2.41 mg/dL High 0.00-0.75 [place] Screen With Reflex-[facility]CMG 11/11/2015 [facility] [place] Screen NEGATIVE dsDNA IgG NEGATIVE Laboratory test finding 11/11/2015 [facility] Complement C3 115 mg/dL (90- 180) 21 Complement C4 26 mg/dL (10-40) 22 CBC With Auto Diff 02/11/2015 [facility] WBC 3.8 K/uL Low 4.1-11.0 23 RBC 4.58 M/uL 4.00-5.40 Hemoglobin 13.2 gm/dL 12.0-16.0 Hematocrit 39.6 % 36.0-47.0 MCV 86.5 fL 80.0-97.0 MCH 28.8 pg 27.0-32.0 MCHC 33.3 g/dL 32.0-36.0 RDW 14.0 % 11.5-14.5 PLT Count 213 K/ul 140-400 Neutrophil 62.3 % 35.0-75.0 Lymphocyte 27.6 % 16.0-52.0 Monocyte 6.0 % 2.0-10.0 Eosinophil 2.9 % 0.0-5.0 Basophil 1.2 % 0.0-4.0 Abs Neutrophils 2.4 K/uL 2.1-8.0 Abs Lymphocytes 1.0 K/uL 0.8-5.5 Abmon 0.2 K/uL 0.1-1.0 Abs Eosinophils 0.1 K/uL 0.0-0.5 Abs Basophils 0.0 K/uL 0.0-0.3 Comprehensive Metabolic (CMP) 02/11/2015 [facility] Sodium 137 mmol/L 134- 142 Potassium 4.3 mmol/L 3.5-5.2 Chloride 106 mmol/L 97-109 Carbon Dioxide 26 mmol/L 24-34 Glucose 95 mg/dL 70-105 BUN 13 mg/dL 6-26 Creatinine 0.9 mg/dL 0.5-1.4 Calcium 8.9 mg/dL 8.5-10.2 Total Protein 6.0 g/dL 6.0-8.0 Albumin 3.7 g/dL 3.6-4.9 Globulin 2.3 g/dL 2.0-3.5 A/G Ratio 1.6 Ratio 1.0-2.2 Total Bilirubin 0.4 mg/dL 0.1-1.3 Alkaline Phosphatase 54 U/L 24-140 Alt 10 U/L 3-42 Ast 12 U/L 8-42 Anion Gap 9 mmol/L 6-14 Jacqueline Egfr >60 >60 24 Non Jacqueline Egfr >60 >60 25 Laboratory test finding 02/11/2015 [facility] Esr 14 mm/hr 0-20 Cholesterol 196 mg/dL 50-199 Thyroid Auto AB -RL 02/11/2015 [facility] Thyroglobulin AB @ <20 IU/mL (<40 ) Thyr Peroxidase AB @ <10 IU/mL (<35) 26 Laboratory test finding 02/11/2015 [facility] Cortisol 15.6 g/dL 27 Laboratory test finding 01/28/2015 [facility] TSH 2.73 uIU/mL 0.35-4.94 Free T4 0.96 ng/dL 0.70-1.48 Hemoglobin A1c 5.9 % 4.1-5.9 Laboratory test finding 01/28/2015 [facility] Triiodothyronine 1.5 ng/mL ( 0.7-1.9) 28 Laboratory test finding 11/05/2014 [facility] Esr 12 mm/hr 0-20 CRP (C-Reactive) 1.21 mg/dL High 0.00-0.75 Uric Acid 3.4 mg/dL 2.6-7.6 TSH 1.83 uIU/mL 0.35-4.94 Laboratory test finding 06/17/2014 [facility] SSB Igg AB NEGATIVE INDEX ( Neg) 29 Ssa Igg AB NEGATIVE INDEX (Neg) 30 CCP Antibody Igg 19 31 Anti-Dna(DS) AB <1 IU (0-4) 32 Laboratory test finding 06/17/2014 [facility] Rheumatoid Factor <10.0 IU/mL 0.0-10.0 Sow(Hilary) AB, IgG NEGATIVE INDEX (Neg) 33 Laboratory test finding 05/31/2014 [facility] Ferritin 19.1 ng/ml 11.0- 306.0 Laboratory test finding 05/17/2014 [facility] Vitamin B12 818 pg/mL 180- 914 34 Vit D,25 Hydroxy 53 ng/mL 31-100 Iron Panel 05/17/2014 [facility] Iron, Total 205 g/dL High 50-170 Transferrin 310.1 mg/dL 203.0-362.0 Tibc (calc) 434 g/dL 261-478 % Iron Saturation 47.2 % High 13.0-45.0 Laboratory test finding 05/17/2014 [facility] TSH 1.57 uIU/mL 0.34-5.60 Lipid 05/17/2014 [facility] Cholesterol 216 mg/dL High 50-199 Triglycerides 71 mg/dL 30-200 HDL 72 mg/dL 35-85 35 Chol/ HDL Ratio 3.0 ratio Low 3.7-5.6 VLDL 14 mg/dL 2-29 LDL (Calc) 130 mg/dL High 20-99 36 A1 Antitrypsin Pheno 05/17/2014 [facility] A1 Antitrypsin 144 mg/dL 37 A1 Antitrypsin Pheno M1M1 38 Comprehensive Metabolic (CMP) 05/17/2014 [facility] Sodium 136 mmol/L 134- 142 Potassium 3.9 mmol/L 3.5-5.2 Chloride 103 mmol/L 97-109 Carbon Dioxide 27 mmol/L 24-34 Glucose 98 mg/dL 70-105 BUN 16 mg/dL 6-26 Creatinine 0.9 mg/dL 0.5-1.4 Calcium 8.9 mg/dL 8.5-10.2 Total Protein 6.3 g/dL 6.0-8.0 Albumin 4.0 g/dL 3.6-4.9 Globulin 2.3 g/dL 2.0-3.5 A/G Ratio 1.7 Ratio 1.0-2.2 Total Bilirubin 0.5 mg/dL 0.1-1.3 Alkaline Phosphatase 57 U/L 24-140 Alt 17 U/L 3-42 Ast 17 U/L 8-42 Anion Gap 10 mmol/L 6-14 Jacqueline Egfr >60 >60 39 Non Jacqueline Egfr >60 >60 40 CBC With Auto Diff 05/17/2014 [facility] WBC 4.7 K/uL 4.1-11.0 RBC 4.50 M/uL 4.00-5.40 Hemoglobin 13.7 gm/dL 12.0-16.0 Hematocrit 40.8 % 36.0-47.0 MCV 90.6 fL 80.0-97.0 MCH 30.5 pg 27.0-32.0 MCHC 33.7 g/dL 32.0-36.0 RDW 12.9 % 11.5-14.5 PLT Count 242 K/ul 140-400 Neutrophil 67.9 % 35.0-75.0 Lymphocyte 24.3 % 16.0-52.0 Monocyte 5.0 % 2.0-10.0 Eosinophil 1.6 % 0.0-5.0 Basophil 1.2 % 0.0-4.0 Abs Neutrophils 3.2 K/uL 2.1-8.0 Abs Lymphocytes 1.1 K/uL 0.8-5.5 Abmon 0.2 K/uL 0.1-1.0 Abs Eosinophils 0.1 K/uL 0.0-0.5 Abs Basophils 0.1 K/uL 0.0-0.3 1 Updated reference range on new analyzer 2 Updated reference range on new analyzer 3 Concerning GFR Guidelines for Americans: Normal function or mild renal disease, if clinically at risk: >/=60 mL/min Moderately decreased: 30-59 Severely decreased: 15-29 Renal failure: <15 4 Concerning GFR Guidelines: Normal function or mild renal disease, if clinically at risk: >/=60 mL/min Moderately decreased: 30-59 Severely decreased: 15-29 Renal failure: <15 Glomerular Filtration Rate (GFR) is estimated based on the MDRD equation, which assumes a steady state for creatinine as recommended by the National Kidney Disease Education Program in conjunction with the National Institutes of Health and the National Kidney Foundation. Clinical conditions in which it may be necessary to measure GFR by using clearance methods include extremes of age and body size, severe malnutrition or obesity, diseases of skeletal muscle, paraplegia or quadriplegia, vegetarian diet, rapidly changing kidney function, and calculation of the dose of potentially toxic drugs that are excreted by the kidneys. 5 Updated Reference Range 6 A Negative serologic test for Lyme Disease indicates no serologic evidence of infection with B burgdorferi at the time this specimen was collected. A repeat specimen should be collected in 2 to 4 weeks if clinically indicated. Unless otherwise specified, testing performed by [facility] [address] [place] [id number] 7 Unless otherwise specified, testing performed by [facility] [address] [place] [address] 8 M06.9,M79.7 9 Environmental Exposure: WHO Recommendation <20 Occupational Exposure: OSHA Lead Std 40 JITENDRA 30 Detection Limit=1 10 Detection Limit=1 11 Environmental Exposure: <15.0 Occupational Exposure: JITENDRA - Inorganic Mercury: 15.0 Detection Limit=1.0 Performed at: [address] [id number] Case Mgr: Nik Anderson MD, Phone: [phone] 12 Updated reference range on new analyzer 13 Updated reference range on new analyzer 14 Concerning GFR Guidelines for Americans: Normal function or mild renal disease, if clinically at risk: >/=60 mL/min Moderately decreased: 30-59 Severely decreased: 15-29 Renal failure: <15 15 Concerning GFR Guidelines: Normal function or mild renal disease, if clinically at risk: >/=60 mL/min Moderately decreased: 30-59 Severely decreased: 15-29 Renal failure: <15 Glomerular Filtration Rate (GFR) is estimated based on the MDRD equation, which assumes a steady state for creatinine as recommended by the National Kidney Disease Education Program in conjunction with the National Institutes of Health and the National Kidney Foundation. Clinical conditions in which it may be necessary to measure GFR by using clearance methods include extremes of age and body size, severe malnutrition or obesity, diseases of skeletal muscle, paraplegia or quadriplegia, vegetarian diet, rapidly changing kidney function, and calculation of the dose of potentially toxic drugs that are excreted by the kidneys. 16 Updated reference range on new analyzer 17 A Negative serologic test for Lyme Disease indicates no serologic evidence of infection with B burgdorferi at the time this specimen was collected. A repeat specimen should be collected in 2 to 4 weeks if clinically indicated. Unless otherwise specified, testing performed by [facility] [address] [place] [address] 18 Concerning GFR Guidelines for Americans: Normal function or mild renal disease, if clinically at risk: >/=60 mL/min Moderately decreased: 30-59 Severely decreased: 15-29 Renal failure: <15 19 Concerning GFR Guidelines: Normal function or mild renal disease, if clinically at risk: >/=60 mL/min Moderately decreased: 30-59 Severely decreased: 15-29 Renal failure: <15 Glomerular Filtration Rate (GFR) is estimated based on the MDRD equation, which assumes a steady state for creatinine as recommended by the National Kidney Disease Education Program in conjunction with the National Institutes of Health and the National Kidney Foundation. Clinical conditions in which it may be necessary to measure GFR by using clearance methods include extremes of age and body size, severe malnutrition or obesity, diseases of skeletal muscle, paraplegia or quadriplegia, vegetarian diet, rapidly changing kidney function, and calculation of the dose of potentially toxic drugs that are excreted by the kidneys. 20 Fastin hours 21 Unless otherwise specified, testing performed by [place] [address] 22 Unless otherwise specified, testing performed [place] [address] [address] MD [address]. Biju Brito 24 Concerning GFR Guidelines for Americans: Normal function or mild renal disease, if clinically at risk: >/=60 mL/min Moderately decreased: 30-59 Severely decreased: 15-29 Renal failure: <15 25 Concerning GFR Guidelines: Normal function or mild renal disease, if clinically at risk: >/=60 mL/min Moderately decreased: 30-59 Severely decreased: 15-29 Renal failure: <15 Glomerular Filtration Rate (GFR) is estimated based on the MDRD equation, which assumes a steady state for creatinine as recommended by the National Kidney Disease Education Program in conjunction with the National Institutes of Health and the National Kidney Foundation. Clinical conditions in which it may be necessary to measure GFR by using clearance methods include extremes of age and body size, severe malnutrition or obesity, diseases of skeletal muscle, paraplegia or quadriplegia, vegetarian diet, rapidly changing kidney function, and calculation of the dose of potentially toxic drugs that are excreted by the kidneys. 26 Unless otherwise specified, testing performed [place] [address] 27 CORTISOL REFERENCE RANGE: 7-9AM 4.3 - 22.4 MCG/DL 4-6PM 3.1 - 16.7 MCG/DL LATE AFTERNOON LEVELS FALL TO APPROX. 1/2 AM VALUE. RESULTS REVIEWED Unless otherwise specified, testing performed by [place] [address] 28 Unless otherwise specified, testing performed [place] [address] 29 Unless otherwise specified, testing performed by [facility] [address] [place] [address] 30 Unless otherwise specified, testing performed by [facility] [address] [place] [address] 31 Reference range: 0 to 19 Unit: Units INTERPRETIVE INFORMATION: Cyclic Citrullinated Peptide Antibody, IgG 19 Units or less ................... Negative 20-39 Units ........................ Weak Positive 40-59 Units ........................ Moderate Positive 60 Units or greater ................ Strong Positive Anti-cyclic citrullinated peptide (anti-CCP), IgG antibodies are present in about 69-83 percent of patients with rheumatoid arthritis (RA) and have specificities of 93-95 percent. These autoantibodies may be present in the preclinical phase of disease, are associated with future RA development, and may predict radiographic joint destruction. Patients with weak positive results should be monitored and testing repeated. Performed by [facility], [address] [place] [id number] [email or web address], Volodymyr Jensen MD, Lab. Director Unless otherwise specified, testing performed by [facility] [address] [place] [address] 32 IUs INTERPRETATION LESS THAN 5 NEGATIVE 5 TO 9 EQUIVOCAL GREATER THAN 9 POSITIVE Unless otherwise specified, testing performed by [facility] [address] [place] [address] 33 Unless otherwise specified, testing performed by [facility] [address] [place] [address] Lauren 35 Per NCEP ATP III Guidelines: Results lower than 40 mg/dL are suggestive of increased risk for coronary artery disease. Results > or=to 60 mg/dL are considered a negative risk factor. 36 Per NCEP ATP III Guidelines: Normal Population <130 Patients with medical conditions: CHD/DM Optimal: <100 Borderline high: 130-159 High: 160-189 Very high: >189 37 Reference range: 90 to 200 To convert to umol/L, multiply mg/dL by 0.185 38 The patient appears to have a normal phenotype. All M alleles (including subtypes M1, M2, and M3) produce normal serum concentrations of heypb-2-utkulyeo inhibitor and are not associated with clinical disease. Caution in interpretation is advised if the patient has been transfused within the previous 21 days. Performed by [facility], [address] [place] [id number] [email or web address], Volodymyr Jensen MD, Lab. Director Unless otherwise specified, testing performed by [facility] [address] [place] [id number] 39 Concerning GFR Guidelines for Americans: Normal function or mild renal disease, if clinically at risk: >/=60 mL/min Moderately decreased: 30-59 Severely decreased: 15-29 Renal failure: <15 40 Concerning GFR Guidelines: Normal function or mild renal disease, if clinically at risk: >/=60 mL/min Moderately decreased: 30-59 Severely decreased: 15-29 Renal failure: <15 Glomerular Filtration Rate (GFR) is estimated based on the MDRD equation, which assumes a steady state for creatinine as recommended by the National Kidney Disease Education Program in conjunction with the National Institutes of Health and the National Kidney Foundation. Clinical conditions in which it may be necessary to measure GFR by using clearance methods include extremes of age and body size, severe malnutrition or obesity, diseases of skeletal muscle, paraplegia or quadriplegia, vegetarian diet, rapidly changing kidney function, and calculation of the dose of potentially toxic drugs that are excreted by the kidneys. Procedures Date Code Description Status 06/06/2018 87612 Omt 3-4 Body Regions Completed 05/16/2018 45082 Omt 3-4 Body Regions Completed 04/04/2018 82868 Omt 3-4 Body Regions Completed 01/18/2018 06053 Omt 3-4 Body Regions Completed 12/20/2017 76640 Omt 3-4 Body Regions Completed 11/29/2017 78111 Omt 3-4 Body Regions Completed 10/25/2017 43704 Omt 3-4 Body Regions Completed 08/09/2017 12506 Omt 7-8 Body Regions Completed 06/21/2017 31750 Omt 3-4 Body Regions Completed 05/24/2017 85885 Omt 3-4 Body Regions Completed 05/24/2017 56065 Inject/Drain Joint/Bursa Major W/Out Ultrasound Guidance Completed 04/26/2017 76108 Omt 3-4 Body Regions Completed 03/22/2017 17307 Omt 3-4 Body Regions Completed 01/25/2017 20418 Omt 3-4 Body Regions Completed 12/21/2016 43265 Omt 3-4 Body Regions Completed 11/18/2016 40007 Omt 3-4 Body Regions Completed 09/16/2016 96224 Omt 3-4 Body Regions Completed 08/12/2016 93742 Omt 3-4 Body Regions Completed 07/06/2016 24402 Omt 3-4 Body Regions Completed 06/15/2016 40798 Omt 3-4 Body Regions Completed 06/15/2016 80325 X-Ray Knee Complete W/Obliques & Tunnel And/Or Standing Completed Views 04/20/2016 18871 Omt 3-4 Body Regions Completed 03/30/2016 34688 Omt 3-4 Body Regions Completed 03/02/2016 67696 Omt 3-4 Body Regions Completed 2016 34705 Omt 3-4 Body Regions Completed 02/03/2016 94693 Omt 3-4 Body Regions Completed 12/30/2015 78749 Omt 3-4 Body Regions Completed 12/16/2015 93757 Omt 3-4 Body Regions Completed 12/02/2015 60450 Omt 3-4 Body Regions Completed 11/11/2015 55038 Omt 3-4 Body Regions Completed 10/28/2015 94083 Omt 3-4 Body Regions Completed 10/14/2015 60285 Omt 3-4 Body Regions Completed 09/30/2015 18251 Omt 3-4 Body Regions Completed 09/20/2015 95343 Omt 3-4 Body Regions Completed 08/12/2015 96614 Omt 3-4 Body Regions Completed 07/29/2015 70858 Omt 3-4 Body Regions Completed 07/15/2015 44786 Omt 3-4 Body Regions Completed 07/01/2015 47261 Omt 3-4 Body Regions Completed 06/17/2015 38915 Omt 5-6 Body Regions Completed 06/03/2015 04535 Omt 3-4 Body Regions Completed 05/20/2015 11083 Omt 3-4 Body Regions Completed 05/20/2015 86689 Measure Blood Oxygen Level Single Determination Completed 05/06/2015 09694 Omt 3-4 Body Regions Completed 04/22/2015 54067 Measure Blood Oxygen Level Single Determination Completed 04/22/2015 13161 Omt 3-4 Body Regions Completed 04/17/2015 17049 Measure Blood Oxygen Level Single Determination Completed 04/08/2015 02494 Omt 3-4 Body Regions Completed 04/08/2015 43973 Measure Blood Oxygen Level Single Determination Completed 03/25/2015 65247 Omt 3-4 Body Regions Completed 03/11/2015 27792 Omt 3-4 Body Regions Completed 02/25/2015 89557 Omt 3-4 Body Regions Completed 02/11/2015 32397 Omt 3-4 Body Regions Completed 01/28/2015 59322 Omt 3-4 Body Regions Completed 01/07/2015 12882 Omt 3-4 Body Regions Completed 12/24/2014 46538 Omt 5-6 Body Regions Completed 12/10/2014 42085 Omt 3-4 Body Regions Completed 11/19/2014 42730 Omt 3-4 Body Regions Completed 11/05/2014 80733 Omt 5-6 Body Regions Completed 11/05/2014 22189 X-Ray Calcaneus Two Views Completed 10/24/2014 34300 Omt 3-4 Body Regions Completed 10/08/2014 12716 Omt 3-4 Body Regions Completed 09/16/2014 87075 Omt 3-4 Body Regions Completed 08/29/2014 81798 Omt 3-4 Body Regions Completed 07/31/2014 07255 Omt 3-4 Body Regions Completed 07/08/2014 78474 Omt 3-4 Body Regions Completed 06/13/2014 08897 Omt 3-4 Body Regions Completed 05/30/2014 96827 Omt 5-6 Body Regions Completed 05/15/2014 88756 Omt 5-6 Body Regions Completed 04/09/2014 45008 Visual Screening Test Completed 04/09/2014 59689 Screening Hearing Test Completed Encounters Type Date Location Provider Dx Diagnosis Office Visit 05/16/2018 [facility] Davey Toney DO M06.9 Rheumatoid arthritis, 8:30a unspecified M79.7 Fibromyalgia M54.2 Cervicalgia M99.01 Segmental and somatic dysfunction of cervical region R73.01 Impaired fasting glucose Z68.34 Body mass index (BMI) 34.0-34.9, adult Office Visit 04/04/2018 8:30a [facility] Davey Toney DO M79.7 Fibromyalgia M06.9 Rheumatoid arthritis, unspecified M54.2 Cervicalgia M99.01 Segmental and somatic dysfunction of cervical region Z68.34 Body mass index (BMI) 34.0-34.9, adult Office Visit 01/18/2018 4:15p [facility] Davey Toney DO M79.7 Fibromyalgia M06.9 Rheumatoid arthritis, unspecified R73.01 Impaired fasting glucose M54.2 Cervicalgia M99.01 Segmental and somatic dysfunction of cervical region Z68.33 Body mass index (BMI) 33.0-33.9, adult Office Visit 12/20/2017 8:30a [facility] Davey Toeny DO M79.7 Fibromyalgia M06.9 Rheumatoid arthritis, unspecified Z12.11 Encounter for screening for malignant neoplasm of colon M54.2 Cervicalgia M99.01 Segmental and somatic dysfunction of cervical region R73.01 Impaired fasting glucose Z68.32 Body mass index (BMI) 32.0-32.9, adult Office Visit 11/29/2017 8:30a [facility] Davey Toney DO M06.9 Rheumatoid arthritis, unspecified M79.7 Fibromyalgia S20.462D Insect bite (nonvenomous) of LEFT back wall of thorax, subs R53.83 Other fatigue M54.2 Cervicalgia M99.01 Segmental and somatic dysfunction of cervical region E03.9 Hypothyroidism, unspecified Z83.49 Family history of endo, nutritional and metabolic diseases Z68.32 Body mass index (BMI) 32.0-32.9, adult Office Visit 10/25/2017 8:30a [facility] Davey Toney DO M06.9 Rheumatoid arthritis, unspecified M79.7 Fibromyalgia J06.9 Acute upper respiratory infection, unspecified S20.462A Insect bite (nonvenomous) of LEFT back wall of thorax, init M54.2 Cervicalgia M99.01 Segmental and somatic dysfunction of cervical region Z68.32 Body mass index (BMI) 32.0-32.9, adult Office Visit 08/09/2017 8:30a [facility] Davey Toney DO M06.9 Rheumatoid arthritis, unspecified M79.7 Fibromyalgia M54.2 Cervicalgia M99.01 Segmental and somatic dysfunction of cervical region J02.9 Acute pharyngitis, unspecified Z68.32 Body mass index (BMI) 32.0-32.9, adult Office Visit 06/21/2017 8:30a [facility] Davey Toney DO M06.9 Rheumatoid arthritis, unspecified M79.7 Fibromyalgia M54.2 Cervicalgia M99.01 Segmental and somatic dysfunction of cervical region R20.9 Unspecified disturbances of skin sensation Z12.11 Encounter for screening for malignant neoplasm of colon Office Visit 05/24/2017 8:30a [facility] Davey Toney DO M06.9 Rheumatoid arthritis, unspecified M79.7 Fibromyalgia M54.2 Cervicalgia M99.01 Segmental and somatic dysfunction of cervical region M25.552 Pain in LEFT hip Office Visit 04/26/2017 8:30a [facility] Davey Toney DO M25.562 Pain in LEFT knee J01.90 Acute sinusitis, unspecified M06.9 Rheumatoid arthritis, unspecified M79.7 Fibromyalgia F43.0 Acute stress reaction M54.2 Cervicalgia M99.01 Segmental and somatic dysfunction of cervical region Office Visit 03/22/2017 8:30a [facility] Davey Toney DO J01.90 Acute sinusitis, unspecified H68.001 Unspecified Eustachian salpingitis, RIGHT ear M06.9 Rheumatoid arthritis, unspecified M79.7 Fibromyalgia F43.0 Acute stress reaction M54.2 Cervicalgia M99.01 Segmental and somatic dysfunction of cervical region Office Visit 01/25/2017 8:30a [facility] Davey Toney DO M79.7 Fibromyalgia M06.9 Rheumatoid arthritis, unspecified F43.0 Acute stress reaction M54.2 Cervicalgia M99.01 Segmental and somatic dysfunction of cervical region E03.9 Hypothyroidism, unspecified Office Visit 12/21/2016 8:30a [facility] [facility] Davey Toney DO M79.7 Fibromyalgia M06.9 Rheumatoid arthritis, unspecified F43.0 Acute stress reaction M54.2 Cervicalgia M99.01 Segmental and somatic dysfunction of cervical region M79.673 Pain in unspecified foot Office Visit 11/18/2016 8:30a [facility] Davey Toney DO M25.561 Pain in RIGHT knee M79.7 Fibromyalgia M06.9 Rheumatoid arthritis, unspecified F43.0 Acute stress reaction M54.2 Cervicalgia M99.01 Segmental and somatic dysfunction of cervical region Office Visit 09/16/2016 8:30a [facility] Davey Toney DO M25.561 Pain in RIGHT knee M79.7 Fibromyalgia M06.9 Rheumatoid arthritis, unspecified F43.0 Acute stress reaction M54.2 Cervicalgia M99.01 Segmental and somatic dysfunction of cervical region J01.90 Acute sinusitis, unspecified S40.262A Insect bite (nonvenomous) of LEFT shoulder, init encntr Office Visit 08/12/2016 4:15p [facility] Davey Toney DO M25.561 Pain in RIGHT knee M79.7 Fibromyalgia M06.9 Rheumatoid arthritis, unspecified F43.0 Acute stress reaction M54.2 Cervicalgia M99.01 Segmental and somatic dysfunction of cervical region Office Visit 07/06/2016 8:30a [facility] Davey Toney DO M25.561 Pain in RIGHT knee M79.7 Fibromyalgia M06.9 Rheumatoid arthritis, unspecified F43.0 Acute stress reaction M54.2 Cervicalgia M99.01 Segmental and somatic dysfunction of cervical region Office Visit 06/15/2016 8:30a [facility] Davey Toney DO J01.90 Acute sinusitis, unspecified M25.561 Pain in RIGHT knee M79.7 Fibromyalgia M06.9 Rheumatoid arthritis, unspecified M54.2 Cervicalgia M99.01 Segmental and somatic dysfunction of cervical region F43.0 Acute stress reaction E03.9 Hypothyroidism, unspecified Z83.49 Family history of endo, nutritional and metabolic diseases Office Visit 04/20/2016 8:30a [facility] Davey Toney DO M79.7 Fibromyalgia M06.9 Rheumatoid arthritis, unspecified M54.2 Cervicalgia M99.01 Segmental and somatic dysfunction of cervical region F43.0 Acute stress reaction Office Visit 03/30/2016 8:30a [facility] Davey Toney DO M79.7 Fibromyalgia M06.9 Rheumatoid arthritis, unspecified M54.2 Cervicalgia M99.01 Segmental and somatic dysfunction of cervical region Office Visit 03/02/2016 8:30a [facility] Davey Toney DO M79.7 Fibromyalgia M06.9 Rheumatoid arthritis, unspecified M54.2 Cervicalgia M99.01 Segmental and somatic dysfunction of cervical region Office Visit 2016 8:30a [facility] Davey Toney DO M25.571 Pain in RIGHT ankle and joints of RIGHT foot M79.7 Fibromyalgia M06.9 Rheumatoid arthritis, unspecified M54.2 Cervicalgia M99.01 Segmental and somatic dysfunction of cervical region Office Visit 02/03/2016 8:30a [facility] Davey Toney DO M25.571 Pain in RIGHT ankle and joints of RIGHT foot M79.7 Fibromyalgia M06.9 Rheumatoid arthritis, unspecified M54.2 Cervicalgia M99.01 Segmental and somatic dysfunction of cervical region Office Visit 12/30/2015 8:30a [facility] Davey Toney DO M79.7 Fibromyalgia M06.9 Rheumatoid arthritis, unspecified M54.2 Cervicalgia M99.01 Segmental and somatic dysfunction of cervical region Office Visit 12/16/2015 8:30a [facility] Davey Toney DO M79.7 Fibromyalgia M06.9 Rheumatoid arthritis, unspecified M54.2 Cervicalgia M99.01 Segmental and somatic dysfunction of cervical region Office Visit 12/02/2015 8:30a [facility] Davey Toney DO M79.7 Fibromyalgia M06.9 Rheumatoid arthritis, unspecified M54.2 Cervicalgia M99.01 Segmental and somatic dysfunction of cervical region Office Visit 11/11/2015 8:30a [facility] Davey Toney DO M79.7 Fibromyalgia M06.9 Rheumatoid arthritis, unspecified M54.2 Cervicalgia M99.01 Segmental and somatic dysfunction of cervical region H68.001 Unspecified Eustachian salpingitis, RIGHT ear Office Visit 10/28/2015 8:30a [facility] Davey Toney DO M79.7 Fibromyalgia M54.2 Cervicalgia M99.01 Segmental and somatic dysfunction of cervical region Office Visit 10/14/2015 8:30a [facility] Davey Toney DO M79.7 Fibromyalgia M54.2 Cervicalgia M99.01 Segmental and somatic dysfunction of cervical region Office Visit 09/30/2015 8:30a [facility] Davey Toney DO H68.001 Unspecified Eustachian salpingitis, RIGHT ear M79.7 Fibromyalgia M54.2 Cervicalgia M99.01 Segmental and somatic dysfunction of cervical region Office Visit 09/20/2015 8:45a [facility] Davey Toney DO J01.90 Acute sinusitis, unspecified M25.579 Pain in unspecified ankle and joints of unspecified foot M79.7 Fibromyalgia M54.2 Cervicalgia M99.01 Segmental and somatic dysfunction of cervical region Office Visit 08/12/2015 8:30a [facility] Davey Toney DO M79.7 Fibromyalgia M54.2 Cervicalgia M99.01 Segmental and somatic dysfunction of cervical region M25.539 Pain in unspecified wrist M25.579 Pain in unspecified ankle and joints of unspecified foot Office Visit 07/29/2015 8:30a [facility] Davey Toney DO M25.539 Pain in unspecified wrist M79.7 Fibromyalgia M54.2 Cervicalgia M99.01 Segmental and somatic dysfunction of cervical region Office Visit 07/15/2015 8:00a [facility] Davey Toney DO M79.7 Fibromyalgia M54.2 Cervicalgia M99.01 Segmental and somatic dysfunction of cervical region Office Visit 07/01/2015 8:30a [facility] Davey Toney DO H60.02 Abscess of LEFT external ear M79.7 Fibromyalgia M54.2 Cervicalgia M99.01 Segmental and somatic dysfunction of cervical region Office Visit 06/17/2015 8:00a [facility] Davey Toney DO M79.7 Fibromyalgia M54.2 Cervicalgia M99.01 Segmental and somatic dysfunction of cervical region Office Visit 06/03/2015 8:30a [facility] Davey Toney DO J01.90 Acute sinusitis, unspecified M79.7 Fibromyalgia M54.2 Cervicalgia M99.01 Segmental and somatic dysfunction of cervical region Office Visit 05/20/2015 8:00a [facility] Davey Toney DO J01.90 Acute sinusitis, unspecified M79.7 Fibromyalgia M54.2 Cervicalgia M99.01 Segmental and somatic dysfunction of cervical region Office Visit 05/06/2015 8:00a [facility] Davey Toney DO K80.20 Calculus of gallbladder w/o cholecystitis w/o obstruction J06.9 Acute upper respiratory infection, unspecified M79.7 Fibromyalgia M54.2 Cervicalgia M99.01 Segmental and somatic dysfunction of cervical region Office Visit 04/22/2015 8:00a [facility] Davey Toney DO J20.9 Acute bronchitis, unspecified J45.901 Unspecified asthma with (acute) exacerbation J01.90 Acute sinusitis, unspecified M79.7 Fibromyalgia M54.2 Cervicalgia M99.01 Segmental and somatic dysfunction of cervical region Office Visit 04/17/2015 10:45a [facility] Sol Trammell MD J20.9 Acute bronchitis, unspecified J45.901 Unspecified asthma with (acute) exacerbation Office Visit 04/08/2015 8:00a [facility] Davey Toney DO J01.90 Acute sinusitis, unspecified M06.9 Rheumatoid arthritis, unspecified M79.7 Fibromyalgia M54.2 Cervicalgia M99.01 Segmental and somatic dysfunction of cervical region Office Visit 03/25/2015 8:00a [facility] Davey Toney DO M06.9 Rheumatoid arthritis, unspecified M79.7 Fibromyalgia M54.2 Cervicalgia M99.01 Segmental and somatic dysfunction of cervical region J01.90 Acute sinusitis, unspecified Office Visit 03/11/2015 8:00a [facility] Davey Toney DO M06.9 Rheumatoid arthritis, unspecified M79.7 Fibromyalgia M54.2 Cervicalgia M99.01 Segmental and somatic dysfunction of cervical region R25.2 Cramp and spasm Office Visit 02/25/2015 8:00a [facility] Davey Toney DO M06.9 Rheumatoid arthritis, unspecified M79.7 Fibromyalgia M54.2 Cervicalgia M99.01 Segmental and somatic dysfunction of cervical region Office Visit 02/11/2015 8:00a [facility] Davey Toney DO M06.9 Rheumatoid arthritis, unspecified M79.7 Fibromyalgia M54.2 Cervicalgia M99.01 Segmental and somatic dysfunction of cervical region E03.9 Hypothyroidism, unspecified Office Visit 01/28/2015 8:00a [facility] Davey Toney DO M06.9 Rheumatoid arthritis, unspecified M79.7 Fibromyalgia E66.09 Other obesity due to excess calories R60.9 Edema, unspecified H10.9 Unspecified conjunctivitis J20.9 Acute bronchitis, unspecified M54.2 Cervicalgia M99.01 Segmental and somatic dysfunction of cervical region J30.9 Allergic rhinitis, unspecified K21.9 Gastro-esophageal reflux disease without esophagitis M50.80 Other cervical disc disorders, unspecified cervical region M35.9 Systemic involvement of connective tissue, unspecified J43.9 Emphysema, unspecified R53.82 Chronic fatigue, unspecified Office Visit 01/07/2015 8:00a [facility] Davey Toney DO M79.7 Fibromyalgia M06.9 Rheumatoid arthritis, unspecified M54.2 Cervicalgia M99.01 Segmental and somatic dysfunction of cervical region Office Visit 12/24/2014 8:00a [facility] Davey Toney DO 729.1 Myalgia & Myositis Unspec 714.0 Rheumatoid Arthritis 723.1 Cervicalgia 739.1 Lesion Nonallopathic Cervical Region Not Elsewhere Class Office Visit 12/10/2014 8:00a [facility] Davey Toney DO 729.1 Myalgia & Myositis Unspec 714.0 Rheumatoid Arthritis 723.1 Cervicalgia 739.1 Lesion Nonallopathic Cervical Region Not Elsewhere Class V01.89 Other Communicable Diseases, Contact W/Or Exposure To E906.4 Bite Nonvenomous Arthropod Office Visit 11/19/2014 8:00a [facility] Davey Toney DO 729.1 Myalgia & Myositis Unspec 714.0 Rheumatoid Arthritis 723.1 Cervicalgia 739.1 Lesion Nonallopathic Cervical Region Not Elsewhere Class 477.9 Rhinitis Allergic Cause Unspec 728.71 Fibromatosis Plantar Fascia Office Visit 11/05/2014 8:00a [facility] Davey Toney DO 719.46 Pain Joint Lower Leg 729.1 Myalgia & Myositis Unspec 714.0 Rheumatoid Arthritis 723.1 Cervicalgia 724.1 Pain Thoracic Spine 739.1 Lesion Nonallopathic Cervical Region Not Elsewhere Class 719.47 Pain Joint Ankle & Foot Office Visit 10/24/2014 4:15p [facility] Davey Toney DO 719.46 Pain Joint Lower Leg 729.1 Myalgia & Myositis Unspec 714.0 Rheumatoid Arthritis 723.1 Cervicalgia 724.1 Pain Thoracic Spine 739.1 Lesion Nonallopathic Cervical Region Not Elsewhere Class Office Visit 10/08/2014 8:00a [facility] Davey Toney DO 729.1 Myalgia & Myositis Unspec 714.0 Rheumatoid Arthritis 723.1 Cervicalgia 724.1 Pain Thoracic Spine 739.1 Lesion Nonallopathic Cervical Region Not Elsewhere Class Office Visit 09/16/2014 4:15p [facility] Davey Toney DO 729.1 Myalgia & Myositis Unspec 714.0 Rheumatoid Arthritis 723.1 Cervicalgia 724.1 Pain Thoracic Spine 739.1 Lesion Nonallopathic Cervical Region Not Elsewhere Class Office Visit 08/29/2014 4:15p [facility] Davey Toney DO 729.1 Myalgia & Myositis Unspec 714.0 Rheumatoid Arthritis 723.1 Cervicalgia 724.1 Pain Thoracic Spine 739.1 Lesion Nonallopathic Cervical Region Not Elsewhere Class Office Visit 07/31/2014 4:15p [facility] Davey Toney DO 729.1 Myalgia & Myositis Unspec 714.0 Rheumatoid Arthritis 530.81 Esophageal Reflux 723.1 Cervicalgia 724.1 Pain Thoracic Spine 739.1 Lesion Nonallopathic Cervical Region Not Elsewhere Class Office Visit 07/08/2014 4:15p [facility] Davey Toney DO 729.1 Myalgia & Myositis Unspec 714.0 Rheumatoid Arthritis 723.1 Cervicalgia 724.1 Pain Thoracic Spine 739.1 Lesion Nonallopathic Cervical Region Not Elsewhere Class Office Visit 06/13/2014 4:15p [facility] Davey Toney DO 790.6 Abnormal Blood Chemistry Other 714.0 Rheumatoid Arthritis 729.1 Myalgia & Myositis Unspec 723.1 Cervicalgia 724.1 Pain Thoracic Spine 739.1 Lesion Nonallopathic Cervical Region Not Elsewhere Class 722.91 Disc Disorder Other & Unspec Cervical Region 710.9 Connective Tissue Disease Diffuse Unspec 492.8 Emphysema Other Office Visit 05/30/2014 4:15p [facility] Davey Toney DO 790.6 Abnormal Blood Chemistry Other 723.1 Cervicalgia 724.1 Pain Thoracic Spine 739.1 Lesion Nonallopathic Cervical Region Not Elsewhere Class 722.91 Disc Disorder Other & Unspec Cervical Region 710.9 Connective Tissue Disease Diffuse Unspec 714.0 Rheumatoid Arthritis 729.1 Myalgia & Myositis Unspec 780.71 Chronic Fatigue Syndrome 307.49 Sleep Disorder Other 492.8 Emphysema Other Office Visit 05/15/2014 4:15p [facility] Davey Toney DO 530.81 Esophageal Reflux 786.05 Shortness Of Breath 780.71 Chronic Fatigue Syndrome V77.91 Screening For Lipoid Disorders 729.1 Myalgia & Myositis Unspec 493.90 Asthma Unspec W/O Status Asthmaticus 477.9 Rhinitis Allergic Cause Unspec 397.0 Tricuspid Valve Disease 473.9 Sinusitis Chronic Unspec 386.00 Menieres Disease Unspec 564.1 Irritable Bowel Syndrome 714.0 Rheumatoid Arthritis 710.9 Connective Tissue Disease Diffuse Unspec 327.23 Apnea, Obstructive Sleep Apnea Adult & Pediatric 722.91 Disc Disorder Other & Unspec Cervical Region 443.0 Raynauds Syndrome 244.9 Hypothyroidism Other Unspec 780.2 Syncope & Collapse 723.1 Cervicalgia 724.1 Pain Thoracic Spine 739.1 Lesion Nonallopathic Cervical Region Not Elsewhere Class 574.20 Calculus Gallbladder W/O Cholecystitis W/O Obstruction Plan of Treatment Future Appointment(s):08/01/2018 8:30 am - Davey Toney DO at [facility]07/04/2018 8:30 am - Davey Toney DO at [facility]06/06/2018 - Davey Toney DOM06.9 Rheumatoid arthritis, tbvjohqjlypW83.01 Impaired fasting hdgilplM73.7 StfrujxbplrkF87.2 LlibdonbsksA81.01 Segmental and somatic dysfunction of cervical unurfoS44.562 Pain in LEFT kneeFollow up:Get x-ray done today. See me as scheduled.Z23 Encounter for kduxluoowapeB44.34 Body mass index (BMI) 34.0- 34.9, adult
[2018-06-15 10:16] VITALS: BP 120/69
--- NOTE | 2018-06-15 10:30 | UC ---
Throat Pain/Nasal Nasim HPI - HPI Summary HPI Summary: patient has had three weeks of increased sinus pressure and congestion feels SOB even when talking at times. denies fever, chills or body aches - History of Current Complaint Chief Complaint: UCRespiratory Stated Complaint: SINUS PRESSURE,COUGH,CONGESTION Time Seen by Provider: 06/15/18 10:09 Hx Obtained From: Patient Hx Last Menstrual Period: 1.5weeks ?: No Onset/Duration: Sudden Onset, Lasting Weeks Severity: Mild Pain Intensity: 2 Pain Scale Used: 0-10 Numeric - Allergies/Home Medications Allergies/Adverse Reactions: Allergies Allergy/AdvReac Type Severity Reaction Status Date / Time aspirin Allergy Tinnitus Verified 06/15/18 10:10 clarithromycin Allergy Facial Verified 06/15/18 10:10 Redness/Flushing levofloxacin Allergy Facial Verified 06/15/18 10:10 Redness/Flushing pregabalin Allergy Swelling Verified 06/15/18 10:10 Sulfa (Sulfonamide Allergy Hives Verified 06/15/18 10:10 Antibiotics) Home Medications: Home Medications Nabumetone TAB* [Relafen TAB*] 500 mg PO BID PRN 06/15/18 [History Confirmed ] PMH/Surg Hx/FS Hx/Imm Hx Previously Healthy: Yes - Surgical History Surgical History: Yes Surgery Procedure, Year, and Place: septoplasty,, appendectomy, radiofrequency tx in neck. Breast augmentation 2006. sinus surgery 10/31 with tubes in ears - Family History Known Family History: Positive: Hypertension, Respiratory Disease - copd, asthma Negative: Cardiac Disease - Social History Alcohol Use: Occasionally Substance Use Type: None Smoking Status (MU): Never Smoked Tobacco Review of Systems All Other Systems Reviewed And Are Negative: Yes Constitutional: Positive: Negative Skin: Positive: Negative Eyes: Positive: Negative ENT: Positive: Sore Throat, Ear Ache, Nasal Discharge Respiratory: Positive: Shortness Of Breath, Cough Cardiovascular: Positive: Negative Gastrointestinal: Positive: Negative Genitourinary: Positive: Negative Motor: Positive: Negative Neurovascular: Positive: Negative Musculoskeletal: Positive: Negative Neurological: Positive: Headache Psychological: Positive: Negative Is Patient Immunocompromised?: No Physical Exam Triage Information Reviewed: Yes Appearance: Well-Nourished, Ill-Appearing, Pain Distress Vital Signs: Initial Vital Signs Temp 98.7 F 06/15/18 10:13 Pulse 71 06/15/18 10:13 Resp 17 06/15/18 10:13 BP 120/69 06/15/18 10:13 Pulse Ox 100 06/15/18 10:13 Vital Signs Reviewed: Yes Eye Exam: Normal ENT: Positive: Pharyngeal erythema - with PND, Nasal congestion, TM bulging, TM dull, Sinus tenderness Dental Exam: Normal Neck exam: Normal Neck: Positive: Supple, Nontender, No Lymphadenopathy Respiratory Exam: Normal Respiratory: Positive: Chest non-tender, Lungs clear, Normal breath sounds, Other: - no wheezing heard on exam Cardiovascular Exam: Normal Cardiovascular: Positive: RRR, No Murmur, Pulses Normal Abdominal Exam: Normal Musculoskeletal Exam: Normal Neurological Exam: Normal Psychological Exam: Normal Skin Exam: Normal Throat Pain/Nasal Course/Dx - Course Course Of Treatment: hx obtained, exam performed, meds reviewed, treaetd for sinusitis, refill for albuterol given, she has been using it group home as needed. - Differential Dx/Diagnosis Differential Diagnosis/HQI/PQRI: Influenza, Laryngitis, Otitis Media, Pharyngitis, URI Provider Diagnosis: Sinusitis Discharge - Sign-Out/Discharge Documenting (check all that apply): Patient Departure All imaging exams completed and their final reports reviewed: No Studies - Discharge Plan Condition: Stable Disposition: HOME Prescriptions: Albuterol 2.5MG/3ML (0.083%)* [Ventolin 2.5 MG/3 ML NEB.COLE*] 2.5 mg INH Q12H # 1 box Azithromyxin NHAN (NF) [Z-Nhan (Zithromax) 250 mg tabs #6] 2 tab PO .TODAY, THEN 1 DAILY #6 tab Patient Education Materials: Sinusitis (ED) Forms: *Work Release Referrals: Davey Toney DO [Primary Care Provider] - Additional Instructions: 1. take the medication as prescribed. 2. Warm compresses to the sinuses and nasal saline will help clear out the sinus 3. ibuprofen and tylenol as needed. 4. I have refilled your albuterol use every 4 hours as needed. - Billing Disposition and Condition Condition: STABLE Disposition: Home
== END 2018-06-15 10:33 | disposition home or self-care (01) ==
LOC: UCCORT 09:32
DX: J32.9 Chronic sinusitis, unspecified (principal); Z88.8 Allergy status to other drugs, medicaments and biological substances; Z88.1 Allergy status to other antibiotic agents; Z88.2 Allergy status to sulfonamides
CPT/HCPCS: 99212; G0463

== ENCOUNTER 2019-04-24 09:52 | Emergency (ER) | payer BC ==
--- OUTSIDE RECORDS SUMMARY | 2019-04-24 10:10 | XMS REPORT | Continuity of Care Document ---
:1965 External Reference #:[id number] Author Name ENEIDA Alonzo (transmitted by agent of provider Darren Sow) Address [address] [facility] [address] [place] [address] Care Team Providers Name Role Phone Brian Dos Santos MD - Rheumatology Care Team Information Supervisor Type Photography Davey Barnard, - Family Care Team Information Supervisor Type Photography Medicine Problems Active Problems Provider Date FH: Angina at less than 60 years Onset: 01/12/2019 Restless legs Onset: 01/14/2015 Syncope and collapse Onset: 01/12/2019 Allergic rhinitis Birdie Carvajal, Onset: 02/06/2019 RPA-C Allergic rhinitis due to pollen Birdie Carvajal, Onset: 02/06/2019 RPA-C Uncomplicated moderate persistent Birdie Carvajal, Onset: 02/06/2019 asthma RPA-C Common variable agammaglobulinemia Birdie Carvajal, Onset: 02/06/2019 RPA-C Social History Type Date Description Comments Sex Unknown Tobacco Use Start: Unknown Patient has never smoked Smoking Status Reviewed: 03/27/19 Patient has never smoked Allergies, Adverse Reactions, Alerts Active Allergies Reaction Severity Comments Date Aspirin tinnitus 01/18/2019 Biaxin facial 01/18/2019 fllushing Indomethacin 01/18/2019 Levaquin facial 01/18/2019 flushing Pregabalin 01/18/2019 Sulfa Antibiotics 01/18/2019 Theophylline 02/06/2019 Pce 02/06/2019 Tylenol 02/06/2019 Methadone 02/06/2019 Citalopram 02/06/2019 Medications Active Medications SIG Qnty Indications Ordering Provider Date Amoxicillin take one tablet 28tabs J30.1 Darren Carrion 03/27/2019 875mg by mouth twice a MD Juanjose Tablets day x14 days. Nasonex spray 2 sprays 17gm J30.1 Darren Carrion 02/06/2019 50mcg/Act in each nostril MD Juanjose Suspension by intranasal route once daily. Xyzal Allergy 24HR take 1 tablet (5 30tabs J30.1 Gonsaloopher A. 02/06/2019 5mg mg) by oral MD Juanjose Tablets route once daily as needed Symbicort inhale 2 puffs 10.200gm J45.40 Darren Wiggins. 02/06/2019 by inhalation MD Juanjose 160-4.5mcg/Act route twice a Aerosol day. rinse mouth after use. Ventolin HFA inhale 2 puffs 16gm J45.40 Darren Wiggins. 02/06/2019 by inhalation MD Juanjose 108(90Base) mcg/Act route every 4 Aerosol hours as needed Etodolac Take one 30tabs Brian Dos Santos, 01/17/2019 500mg Tablets capsule/tablet MD by mouth twice daily as needed for pain Pronutrients Vitamin 2 by mouth every Unknown 01/11/2019 D3 day 25mcg (1000 Ut) Capsules Metformin HCL 1 by mouth every Unknown 01/11/2019 500mg day Tablets Pramipexole take 4 by mouth 180tabs Carmela Bales 06/19/2013 Dihydrochloride three hours MD David 0.125mg prior to bed, Tablets may take additional 2 tablets as needed. Zinc 15 Unknown 66mg Tablets Magnesium Unknown 400mg Tablets Calcium 1000 + D Unknown [id number] Tablets Meclizine HCL Unknown 25mg Tablets Nabumetone Unknown 750mg Tablets Pantoprazole Sodium 1 po qday Unknown 40mg Tablets DR Metaxalone take 1 tablet po Unknown 800mg hs prn Tablets Furosemide 1 by mouth every Unknown 20mg Tablets other day. Levothyroxine Sodium 1 po qd Unknown 75mcg Tablets Immunizations Description No Information Available Vital Signs Date Vital Result Comment 03/27/2019 4:06pm BP Systolic 128 mmHg BP Diastolic 67 mmHg Height 65 inches 5'5" Weight 201.38 lb BMI (Body Mass Index) 33.5 kg/m2 Heart Rate 74 /min Respiratory Rate 16 /min O2 % BldC Oximetry 97 % 02/06/2019 4:16pm BP Systolic 146 mmHg BP Diastolic 88 mmHg Height 65 inches 5'5" Weight 201.00 lb BMI (Body Mass Index) 33.4 kg/m2 Heart Rate 68 /min Respiratory Rate 16 /min Body Temperature 97.6 F O2 % BldC Oximetry 99 % Results Test Acquired Date Facility Test Result H/L Range Note Iron & Iron Binding 01/08/2019 N2N/CCD Import Iron 75 g/dL 50-212 Capacity Unsaturated Iron Binding < 376 ug/dL Total Iron Binding Capacity 391 g/dL 250-450 Transferrin 279 mg/dL 203-362 % Iron Saturation 19 % 15-55 Lab Results 01/08/2019 N2N/CCD Import Ferritin 47.4 ng/mL 11-307 1 Lab Results 12/06/2018 N2N/CCD Import Cyclic 23.2 U Abnormal 2 Citrullinated Pep Igg Erythrocyte Sed Rate 25 mm/Hr 0-29 3 C Reactive Protein 4.13 mg/L 4 Creatine Kinase(CK) 180 U/L 10-223 5 Aldolase 6.0 U/L 6 Anca AB Ser If 12/06/2018 N2N/CCD Import C-Anca Negative P-Anca Negative 7 Lab Results 12/06/2018 N2N/CCD Import Immunoglobulin G 804 mg/dL 767- 1590 8 Immunoglobulin M 12 mg/dL Abnormal 37-286 Immunoglobulin A 177 mg/dL 61-356 Vitamin B12 And Folate 12/06/2018 N2N/CCD Import Vitamin B12 301 pg/mL 180-914 9 Serum Folic Acid (Folate) 11.97 ng/mL 10 Lab Results 12/06/2018 N2N/CCD Import Thyroperoxidase AB 0.27 IU/mL 11 CBC Auto Diff 12/06/2018 N2N/CCD Import White Blood Count 5.7 10^3/uL 3.5-10.8 Red Blood Count 4.75 10^6/uL 3.70-4.87 Hemoglobin 13.5 g/dL 12.0-16.0 Hematocrit 40 % 35-47 Mean Corpuscular Volume 84 fL 80-97 Mean Corpuscular Hemoglobin 28 pg 27-31 Mean Corpuscular HGB Conc 34 g/dL 31-36 Red Cell Distribution Width 14 % 10-15 Platelet Count 213 10^3/uL 150-450 Mean Platelet Volume 8.2 fL 7.4-10.4 Abs Neutrophils 4.5 10^3/uL 1.5-7.7 Abs Lymphocytes 0.9 10^3/uL Low 1.0-4.8 Abs Monocytes 0.2 10^3/uL 0-0.8 Abs Eosinophils 0.0 10^3/uL 0-0.6 Abs Basophils 0.0 10^3/uL 0-0.2 Abs Nucleated RBC 0.0 10^3/uL Granulocyte % 79.0 % Lymphocyte % 15.3 % Monocyte % 4.3 % Eosinophil % 0.6 % Basophil % 0.8 % Nucleated Red Blood Cells % 0.0 1 Lab Results 12/06/2018 N2N/CCD Import Sodium 140 mmol/L 135-145 Potassium 4.2 mmol/L 3.5-5.0 Chloride 107 mmol/L 101-111 Co2 Carbon Dioxide 26 mmol/L 22-32 Anion Gap 7 mmol/L 2-11 Glucose 113 mg/dL High 70-100 Blood Urea Nitrogen 14 mg/dL 6-24 Creatinine 0.82 mg/dL 0.51-0.95 BUN/Creatinine Ratio 17.1 1 8-20 Calcium 9.4 mg/dL 8.6-10.3 Total Protein 6.4 g/dL 6.4-8.9 Albumin 4.3 g/dL 3.2-5.2 Globulin 2.1 g/dL 2-4 Albumin/Globulin Ratio 2.0 1 1-3 Total Bilirubin 0.30 mg/dL 0.2-1.0 Alkaline Phosphatase 86 U/L 34-104 Alt 20 U/L 7-52 Ast 18 U/L 13-39 Egfr Non- 72.9 1 Egfr 88.2 1 12 Hla B27 Negative 13 Hla B27 Interp See Comment 14 Rheumatoid Factor < 10 Iu/ml 15 Anti Ssa/Ro <0.2 U 16 Anti SSB LA <0.2 U 17 Aso (Antistreptolysin O) Titer Negative Iu/ml 18 Magnesium 1.9 mg/dL 1.9-2.7 19 Pyridoxal 5-Phosphate 5 ug/L 5-50 20 Pyridoxic Acid 4 ug/L 3-30 21 Nuclear AB ([place]) By Ifa Igg <1:80 (Negative) 22 1 Copy Result to: DAVEY BARNARD ([id number]) 2 Interpretation: Weak Positive (20.0-39.9) REFERENCE VALUE <20.0 (Negative) Test Performed by: [place] [address] 3 Please check labs today 4 Please check labs today 5 Please check labs today 6 Test Performed by: [facility] [place] [address] 7 Please check labs today 8 Interpretation: Weak Positive (20.0-39.9) REFERENCE VALUE <20.0 (Negative) Test Performed by: [place] [address] 9 Interpretation: Weak Positive (20.0-39.9) REFERENCE VALUE <20.0 (Negative) Test Performed by: [place] [address] 10 Please check labs today 11 Interpretation: Weak Positive (20.0-39.9) REFERENCE VALUE <20.0 (Negative) Test Performed by: [place] [address] 12 Because ethnic data is not always readily available, this report includes an eGFR for both -Americans and non- Americans. The National Kidney Disease Education Program (NKDEP) does not endorse the use of the MDRD equation for patients that are not between the ages of 18 and 70, are , have extremes of body size, muscle mass, or nutritional status, or are non- or non-. According to the National Kidney Foundation, irrespective of diagnosis, the stage of the disease is based on the level of kidney function: Stage Description GFR(mL/min/1.73 m(2)) 1 Kidney damage with normal or decreased GFR 90 2 Kidney damage with mild decrease in GFR 60-89 3 Moderate decrease in GFR 30-59 4 Severe decrease in GFR 15-29 5 Kidney failure <15 (or dialysis) 13 Interpretation: Weak Positive (20.0-39.9) REFERENCE VALUE <20.0 (Negative) Test Performed by: [facility] [employer] [address] [place] [address] 14 Please check labs today 15 Interpretation: Weak Positive (20.0-39.9) REFERENCE VALUE <20.0 (Negative) Test Performed by: [facility] [employer] [address] [place] [address] 16 Please check labs today 17 Please check labs today 18 Please check labs today 19 Test Performed by: [place] [address] 20 Interpretation: Weak Positive (20.0-39.9) REFERENCE VALUE <20.0 (Negative) Test Performed by: [facility] [employer] [facility] [place] [place] [address] 21 Please check labs today 22 Interpretation: Weak Positive (20.0-39.9) REFERENCE VALUE <20.0 (Negative) Test Performed by: [facility] [address] [place] [address] Procedures Date Code Description Status 02/06/2019 22447 Nitric Oxide Gas Determination Completed 02/06/2019 66327 Bronchodilation Responsiveness Spirometry Pre/Post Completed Bronchodil Adm Medical Devices Description No Information Available Encounters Type Date Location Provider Dx Diagnosis Office Visit 03/27/2019 [place] 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 Fenstermacher, immunodeficiencies RPA-C 03/27/2019 J45.40 Moderate persistent asthma, Birdie S. Fenstermacher, uncomplicated RPA-C 03/27/2019 J30.1 Allergic rhinitis due to pollen Birdie S. Fenstermacher, RPA-C 03/27/2019 J30.89 Other allergic rhinitis Birdie S. Fenstermacher, RPA-C 02/06/2019 D83.8 Other common variable Birdie S. Fenstermacher, immunodeficiencies RPA-C 02/06/2019 J45.40 Moderate persistent asthma, Birdie S. Fenstermacher, uncomplicated RPA-C 02/06/2019 J30.1 Allergic rhinitis due to pollen Birdie S. Fenstermacher, RPA-C 02/06/2019 J30.89 Other allergic rhinitis Birdie S. Fenstermacher, RPA-C Plan of Treatment 03/27/2019 - Birdie S. Fenstermacher, RPA-CD83.8 Other common variable immunodeficienciesComments:Patient had normal immune response to Tetanus and Diptheria vaccinations. However, she is a 100% non-responder to the pneumococcal vaccine. Patient also has low IgG and low IgM levels with a history ofrecurrent pneumonia and sinus infections. I have discussed the risks and benefits of replacement gammaglobulin therapy with Gamunex and patient would like to begin therapy. Patient informed of the national shortage of IVIG. We will begin authorization process and contact patient as soon as Gamunex is available.J45.40 Moderate persistent asthma, uncomplicatedComments:Continue Symbicort as prescribed. Continue Albuterol as needed for breakthrough coughing , wheezing, chest tightness and/or shortness of breath.J30.1 Allergic rhinitis due to pollenNew Medication:Amoxicillin 875 mg - take one tablet by mouth twice a day x14 days.Comments:Patient with acute sinusitis. I will give Amoxicillin x14 days. Patient to contact the office if symptoms are not improving. Continue Xyzal and Nasonex as prescribed for treatment of nasal allergies.J30.89 Other allergic rhinitis Functional Status Description No Information Available Mental Status Description No Information Available Referrals Description No Information Available
--- OUTSIDE RECORDS SUMMARY | 2019-04-24 10:10 | XMS REPORT | Continuity of Care Document ---
:1965 External Reference #:[id number] Author Name Davey Toney DO Address [address] [place] [id number] Care Team Providers Name Role Phone Alonzoaleah Cory - Pulmonary Disease Care Team Information [place] Dorcas Stewart MD - Cardiovascular Care Team Information [place] Disease Hali Amaya MD - Obstetrics & Care Team Information [place] Gynecology Luis Koroma MD - Otolaryngology Care Team Information [place] Carmela Bales Care Team Information [place] [phone] - Rheumatology Care Team Information [place] [phone] Kane Ramirez MD - Orthopaedic Care Team Information [place] Surgery Brian Dos Santos DR - Rheumatology Care Team Information [place] [phone] Problems Active Problems Provider Date Hypothyroidism Davey Toney DO Onset: 04/09/2014 Raynaud's disease Davey Toney DO Onset: 04/09/2014 Cervical disc disorder Davey Toney DO Onset: 04/09/2014 Obstructive sleep apnea syndrome Davey Toney DO Onset: 04/09/2014 Collagen disease Davey Toney DO Onset: 04/09/2014 Rheumatoid arthritis Davey Toney DO Onset: 04/09/2014 Irritable bowel syndrome Davey Toney DO Onset: 04/09/2014 Meniere's disease Toney DaveyDO Onset: 04/09/2014 Chronic sinusitis Davey Toney DO Onset: 04/09/2014 Chronic fatigue syndrome Davey Toney DO Onset: 04/09/2014 Allergic rhinitis Brien ToneyewDO Onset: 04/09/2014 Asthma without status asthmaticus Brien ToneyewDO Onset: 04/09/2014 Fibromyositis Brien ToneyewDO Onset: 04/09/2014 Gastroesophageal reflux disease Davey Toney DO Onset: 04/09/2014 Myalgia & Myositis Unspecified ToneyBrien raeewDO Onset: 05/15/2014 Fibromyalgia Brien ToneyewDO Onset: 01/07/2015 Peptic reflux disease Davey Toney DO Onset: 05/15/2014 Hypothyroidism ToneyBrien raeewDO Onset: 05/15/2014 Allergic rhinitis due to pollen Brien ToneyewDO Onset: 05/15/2014 Social History Type Date Description Comments Sex Unknown ETOH Use Consumes 3 glasses of wine per week Recreational Drug Use Denies Drug Use Allergies, Adverse Reactions, Alerts Active Allergies Reaction Severity Comments Date Biaxin 04/09/2014 Levaquin 04/09/2014 Aspirin 04/09/2014 Lyrica 04/09/2014 Indomethacin 04/09/2014 Citalopram 04/09/2014 Theophylline 04/09/2014 Sulfa Drugs 01/28/2015 Medications Active Medications SIG Qnty Indications Ordering Date Provider Symbicort 2 puffs once a Sow Allergy 02/05/2019 160-4.5mcg/Act day and Asthma Aerosol Metaxalone 1 By Mouth Every 30tabs M54.2 Davey Toney, 05/16/2018 800mg Tablets Night AT Bedtime DO Metformin HCL Take 1 Tablet By 90tabs Davey Toney, 12/20/2017 500mg Tablets Mouth Every Day DO Pantoprazole Sodium take 1 tablet by 30tabs Davey Toney, 11/29/2017 40mg mouth every day DO Tablets DR Furosemide 1 By Mouth Every 90tabs Davey Toney, 11/11/2015 20mg Tablets Day DO Albuterol Sulfate use 1 vial via 75ml Davey Toney, 07/04/2015 nebulizer every DO (2.5mg/3ML) 0.083% 4 hours as Nebulizer needed for cough, for shortness of breath, wheezing Valacyclovir HCL Take 2 Tablets 12tabs Davey Toney, 12/19/2014 1gm By Mouth Twice A DO Tablets Day X 1 Day as Needed Outbreak Of Cold Sores Pramipexole 2 po qhs prn 180tabs Unknown Dihydrochloride restless legs 0.125mg Tablets Meclizine HCL take 1/2 to 1 60tabs Unknown 25mg Tablets pill up to three times a day as needed for dizziness. Ventolin HFA 2 puffs by mouth 3units Davey Toney, 108(90Base) every 4 hours as DO mcg/Act Aerosol needed Vitamin D3 Super 1 by mouth every Unknown Strength day 2000Unit Tablets Levothyroxine Sodium take 1 tablet by 90tabs Davey Toney, 75mcg mouth every day DO Tablets Calcium/Magnesium/Zinc 1 PO qd Unknown Tablets Lodine Unknown 400mg Tablets Medications Administered in Office Medication SIG Qnty Indications Ordering Provider Date Depo Medrol 80 MG Davey Toney DO 05/24/2017 Injection Immunizations CPT Code Status Date Vaccine Lot # [id number] Given 02/16/2019 Afluria Or Fluvirin Flu Vac Intramuscular 11489 Given 06/06/2018 Pneumococcal 23 Immunization Adult Or [id number] Immunosuppressed Patient 936[address] Given 06/06/2018 Tdap (Adacel) Ages 7 And Above Only [id number] 63288 Given 02/22/2018 Influenza Vac, Quadrivalent, Split, 0.5mL Dosage, Im Use Q2035 Given 03/13/2017 Afluria Imunization Q2035 Refused 01/18/2018 Afluria Imunization Vital Signs Date Vital Result Comment 03/27/2019 8:39am Weight 200.00 lb Heart Rate 68 /min BP Systolic 122 mmHg BP Diastolic 82 mmHg Respiratory Rate 18 /min Height 64.5 inches 5'4.50" BMI (Body Mass Index) 33.8 kg/m2 02/20/2019 8:35am Weight 202.00 lb Heart Rate 90 /min BP Systolic 106 mmHg BP Diastolic 64 mmHg Respiratory Rate 18 /min Height 64.5 inches 5'4.50" BMI (Body Mass Index) 34.1 kg/m2 Results Test Acquired Date Facility Test Result H/L Range Note Laboratory test 03/09/2019 [facility] Hemoglobin A1c 5.8 % High 4.0-5.6 1 finding 1 Therapeutic target for the treatment of diabetes mellitus patients is <7% HBA1C, and in selective patients <6.0%. Please refer to [place] [employer] diabetic care guidelines for further information. Procedures Date Code Description Status 03/27/2019 55633 Omt 3-4 Body Regions Completed 02/20/2019 87932 Omt 3-4 Body Regions Completed 01/23/2019 80442 Omt 3-4 Body Regions Completed 09/26/2018 07977 Omt 3-4 Body Regions Completed Medical Devices Description No Information Available Encounters Type Date Location Provider Dx Diagnosis Office Visit 02/20/2019 8:30a [facility] Davey Toney DO M54.2 Cervicalgia M99.01 Segmental and somatic dysfunction of cervical region M54.5 Low back pain R73.03 Prediabetes M25.571 Pain in RIGHT ankle and joints of RIGHT foot R20.9 Unspecified disturbances of skin sensation M06.4 Inflammatory polyarthropathy 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] E66.9 Obesity, unspecified M99.00 Segmental and somatic dysfunction of head region M99.07 Segmental and somatic dysfunction of upper extremity Z68.34 Body mass index (BMI) 34.0-34.9, adult R06.02 Shortness of breath M79.7 Fibromyalgia Office Visit 01/23/2019 8:00a [facility] Davey Toney DO M79.7 Fibromyalgia M54.2 Cervicalgia M99.01 Segmental and somatic dysfunction of cervical region M54.5 Low back pain R73.03 Prediabetes M25.571 Pain in RIGHT ankle and joints of RIGHT foot M99.00 Segmental and somatic dysfunction of head region M99.02 Segmental and somatic dysfunction of thoracic region M99.07 Segmental and somatic dysfunction of upper extremity R20.9 Unspecified disturbances of skin sensation E66.9 Obesity, unspecified M06.4 Inflammatory polyarthropathy 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] R06.02 Shortness of breath Z68.33 Body mass index (BMI) 33.0-33.9, adult Office Visit 09/26/2018 8:30a [facility] Davey Toney, DO M06.9 Rheumatoid arthritis, unspecified M79.7 Fibromyalgia M54.2 Cervicalgia M99.01 Segmental and somatic dysfunction of cervical region M54.5 Low back pain R73.03 Prediabetes E66.9 Obesity, unspecified M25.571 Pain in RIGHT ankle and joints of RIGHT foot R20.9 Unspecified disturbances of skin sensation M99.00 Segmental and somatic dysfunction of head region M99.07 Segmental and somatic dysfunction of upper extremity Z68.33 Body mass index (BMI) 33.0-33.9, adult Assessments Date Code Description Provider 03/27/2019 M54.2 Cervicalgia ToneyBrienew, DO 03/27/2019 M99.01 Segmental and somatic dysfunction of cervical Davey Toney, region 03/27/2019 M54.5 Low back pain Davey Toney, DO 03/27/2019 R73.03 Prediabetes Davey Toney, DO 03/27/2019 M25.571 Pain in RIGHT ankle and joints of RIGHT foot Davey Toney, DO 03/27/2019 R20.9 Unspecified disturbances of skin sensation Davey Toney, DO 03/27/2019 M06.4 Inflammatory polyarthropathy Davey Toney, DO 03/27/2019 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] Davey Toney, DO 03/27/2019 R06.02 Shortness of breath Davey Toney, DO 03/27/2019 M79.7 Fibromyalgia Davey Toney, DO 03/27/2019 E66.9 Obesity, unspecified Davey Toney, DO 03/27/2019 Z68.33 Body mass index (BMI) 33.0-33.9, adult Davey Toney, DO 02/20/2019 M54.2 Cervicalgia Davey Toney, DO 02/20/2019 M99.01 Segmental and somatic dysfunction of cervical Davey Toney, region 02/20/2019 M54.5 Low back pain Davey Toney, DO 02/20/2019 R73.03 Prediabetes Davey Toney, DO 02/20/2019 M25.571 Pain in RIGHT ankle and joints of RIGHT foot Davey Toney, DO 02/20/2019 R20.9 Unspecified disturbances of skin sensation Davey Toney, DO 02/20/2019 M06.4 Inflammatory polyarthropathy Davey Toney, DO 02/20/2019 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] Davey Toney, DO 02/20/2019 E66.9 Obesity, unspecified Davey Toney, DO 02/20/2019 M99.00 Segmental and somatic dysfunction of head Davey Toney, DO region 02/20/2019 M99.07 Segmental and somatic dysfunction of upper Davey Toney , DO extremity 02/20/2019 Z68.34 Body mass index (BMI) 34.0-34.9, adult Davey Toney, DO 02/20/2019 R06.02 Shortness of breath Davey Toney, DO 02/20/2019 M79.7 Fibromyalgia Davey Toney, DO 01/23/2019 M79.7 Fibromyalgia Davey Toney, DO 01/23/2019 M54.2 Cervicalgia Davey Toney, DO 01/23/2019 M99.01 Segmental and somatic dysfunction of cervical Davey Toney, DO region 01/23/2019 M54.5 Low back pain Davey Toney, DO 01/23/2019 R73.03 Prediabetes Davey Toney, DO 01/23/2019 M25.571 Pain in RIGHT ankle and joints of RIGHT foot Davey Toney, DO 01/23/2019 M99.00 Segmental and somatic dysfunction of head Davey Toney, DO region 01/23/2019 M99.02 Segmental and somatic dysfunction of thoracic Davey Toney, DO region 01/23/2019 M99.07 Segmental and somatic dysfunction of upper Davey Toney , DO extremity 01/23/2019 R20.9 Unspecified disturbances of skin sensation Davey Toney, DO 01/23/2019 E66.9 Obesity, unspecified Davey Toney, DO 01/23/2019 M06.4 Inflammatory polyarthropathy Davey Toney, DO 01/23/2019 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] Davey Toney, DO 01/23/2019 R06.02 Shortness of breath Davey Toney, DO 01/23/2019 Z68.33 Body mass index (BMI) 33.0-33.9, adult Davey Toney, DO 09/26/2018 M06.9 Rheumatoid arthritis, unspecified Davey Toney, DO 09/26/2018 M79.7 Fibromyalgia Davey Toney, DO 09/26/2018 M54.2 Cervicalgia Davey Toney, DO 09/26/2018 M99.01 Segmental and somatic dysfunction of cervical Davey Toney, region 09/26/2018 M54.5 Low back pain Davey Toney, DO 09/26/2018 R73.03 Prediabetes Davey Toney, DO 09/26/2018 E66.9 Obesity, unspecified Davey Toney, DO 09/26/2018 M25.571 Pain in RIGHT ankle and joints of RIGHT foot Davey Toney, DO 09/26/2018 R20.9 Unspecified disturbances of skin sensation Davey Toney, DO 09/26/2018 M99.00 Segmental and somatic dysfunction of head Davey Toney, DO region 09/26/2018 M99.07 Segmental and somatic dysfunction of upper Davey Toney , extremity 09/26/2018 Z68.33 Body mass index (BMI) 33.0-33.9, adult Davey Toney Plan of Treatment Future Appointment(s):05/01/2019 8:30 am - [facility] at [facility]03/27/2019 - Davey Toney, DOM54.2 KsbxkjfrglxB41.01 Segmental and somatic dysfunction of cervical rlrseuY65.5 Low back painR73.03 IvtxqgdhgbsT64.571 Pain in RIGHT ankle and joints of RIGHT footR20.9 Unspecified disturbances of skin tqtdexcveE38.4 Inflammatory qvfklvvmoofphyaP97.4 Selective deficiency of immunoglobulin M [IgM]R06.02 Shortness of ihkbzgC48.7 FibromyalgiaFollow up:The patient will follow-up as scheduled.E66.9 Obesity, aruobdqexneI52.33 Body mass index (BMI) 33.0-33.9, adultComments:BMI is at 33.8. The patient should try to lose weight with low-calorie diet and exercises. We willcontinue to monitor weight and BMI periodically. Functional Status Description No Information Available Mental Status Description No Information Available Referrals Refer to Dr Reason for Referral Status Appt Date Scott Otero, [place] Heel pain with heel spur noted spoke with Closed 2018 patient and gave appt date and time. Also informed her discs of xrays need to be picked up before then cm 10/02 Spoke ed Nieto at Dr. Otero's office- patient kept appt and note is not done yet 10/06 [address] [place], [place] [phone]
[2019-04-24 10:33] VITALS: BP 126/80
--- NOTE | 2019-04-24 10:45 | UC ---
FLU HPI - HPI Summary HPI Summary: 54 year old female with PMH + for CIBD, fibromyalgia present with s/s since Tuesday evening. + nasal congestion, cough, headache-frontal, body aches, chills, sweating, nausea/ abdominal upset, chest congestion without wheezing. No prior symptoms. h/o sinus infections in past. no recent abx use - History of Current Complaint Chief Complaint: UCGeneralIllness Stated Complaint: FLU SYMP Time Seen by Provider: 04/24/19 10:44 Hx Obtained From: Patient Hx Last Menstrual Period: 1.5weeks ?: No Onset/Duration: Sudden Onset Severity Currently: Moderate Severity Initially: Moderate Pain Intensity: 6 Pain Scale Used: 0-10 Numeric Associated Signs & Symptoms: Positive: Fever - Allergy/Home Medications Allergies/Adverse Reactions: Allergies Allergy/AdvReac Type Severity Reaction Status Date / Time aspirin Allergy Tinnitus Verified 04/24/19 10:29 clarithromycin Allergy Facial Verified 04/24/19 10:29 Redness/Flushing levofloxacin Allergy Facial Verified 04/24/19 10:29 Redness/Flushing pregabalin Allergy Swelling Verified 04/24/19 10:29 Sulfa (Sulfonamide Allergy Hives Verified 04/24/19 10:29 Antibiotics) Home Medications: Home Medications Budesonide/Formote 160/4.5(NF) [Symbicort 160/4.5 (NF)] 1 puff INH BID 04/24/19 [History Confirmed 04/24/19] Triamcinolone NASAL SPRAY* [Nasacort AQ Nasal Hawkins*] 1 spray .SEE ORDER DAILY 04/24/19 [History Confirmed 04/24/19] metFORMIN* [Glucophage 500 MG TAB *] 500 mg PO DAILY 04/24/19 [History Confirmed 04/24/19] PMH/Surg Hx/FS Hx/Imm Hx - Surgical History Surgical History: Yes Surgery Procedure, Year, and Place: septoplasty,, appendectomy, radiofrequency tx in neck. Breast augmentation 2006. sinus surgery 10/31 with tubes in ears - Family History Known Family History: Positive: Hypertension, Respiratory Disease - copd, asthma Negative: Cardiac Disease - Social History Alcohol Use: Occasionally Substance Use Type: None Smoking Status (MU): Never Smoked Tobacco Review of Systems All Other Systems Reviewed And Are Negative: Yes Constitutional: Positive: Chills, Fatigue. Negative: Fever ENT: Positive: Sore Throat, Ear Ache, Nasal Discharge, Sinus Congestion, Sinus Pain/Tenderness Respiratory: Positive: Cough. Negative: Shortness Of Breath Cardiovascular: Negative: Palpitations, Chest Pain Gastrointestinal: Positive: Abdominal Pain, Nausea Musculoskeletal: Positive: Arthralgia, Myalgia Neurological: Positive: Headache Psychological: Positive: Negative Is Patient Immunocompromised?: No Physical Exam Triage Information Reviewed: Yes Appearance: No Pain Distress, Well-Nourished, Ill-Appearing - mild Vital Signs: Initial Vital Signs Temp 98.1 F 04/24/19 10:26 Pulse 70 04/24/19 10:26 Resp 18 04/24/19 10:26 BP 126/80 04/24/19 10: Pulse Ox 98 04/24/19 10:26 Vital Signs Reviewed: Yes Eyes: Positive: Conjunctiva Clear ENT: Positive: Pharynx normal, Nasal congestion, Nasal drainage, TMs normal, Sinus tenderness. Negative: Pharyngeal erythema, TM bulging, TM dull, TM red, Tonsillar swelling, Tonsillar exudate, Uvula midline Neck: Positive: Supple, Nontender, No Lymphadenopathy. Negative: Nuchal Rigidity, Enlarged Nodes @ Respiratory: Positive: Chest non-tender, Lungs clear, Normal breath sounds, No respiratory distress, No accessory muscle use. Negative: Respiratory distress, Decreased breath sounds, Crackles, Rhonchi, Stridor, Wheezing Cardiovascular: Positive: RRR, No Murmur. Negative: Pulses Normal Neurological Exam: Normal Psychological Exam: Normal Flu Course/Dx - Course Course Of Treatment: - Increase fluid intake - Humidifier at night to help with symptoms - Tessalon Perles to help with cough - OVer the counter medications to help with symptoms - Rapid Flu testing negative - WOrk note given - Return with shortness of breath/ difficulty breathing, increased symptoms. - Differential Dx/Diagnosis Differential Diagnosis/HQI/PQRI: Bronchitis, Influenza Provider Diagnosis: URI (upper respiratory infection) Discharge ED - Sign-Out/Discharge Documenting (check all that apply): Patient Departure All imaging exams completed and their final reports reviewed: No Studies - Discharge Plan Condition: Fair Disposition: HOME Prescriptions: Benzonatate CAP* [Tessalon 100 MG CAP*] 100 mg PO TID PRN #30 cap PRN Reason: Cough Patient Education Materials: Viral Syndrome (ED) Forms: *Work Release Referrals: Davey Toney DO [Primary Care Provider] - Additional Instructions: - Increase fluid intake - Humidifier at night to help with symptoms - Tessalon Perles to help with cough - OVer the counter medications to help with symptoms - Rapid Flu testing negative - WOrk note given - Return with shortness of breath/ difficulty breathing, increased symptoms. - Billing Disposition and Condition Condition: FAIR Disposition: Home
[2019-04-24 10:51] LABS: Influenza A Molecular NEGATIVE (Negative); Influenza B Molecular NEGATIVE (Negative)
== END 2019-04-24 11:08 | disposition home or self-care (01) ==
LOC: UCCORT 09:52
DX: J06.9 Acute upper respiratory infection, unspecified (principal); G61.81 Chronic inflammatory demyelinating polyneuritis; Z88.1 Allergy status to other antibiotic agents; Z88.2 Allergy status to sulfonamides; Z88.6 Allergy status to analgesic agent; Z88.8 Allergy status to other drugs, medicaments and biological substances
CPT/HCPCS: 99212; G0463

== ENCOUNTER 2019-06-19 19:52 | Emergency (ER) | payer BC ==
--- OUTSIDE RECORDS SUMMARY | 2019-06-19 19:59 | XMS REPORT | Continuity of Care Document ---
:1965 External Reference #:[id number] Author Name Brian Dos Santos M.D. (transmitted by agent of provider Chani Lopez) Address [address] [place] [address] Care Team Providers Name Role Phone Benjamin Botello DO - Internal Care Team Information [facility] Nathan Barnard DO - Family Medicine Care Team Information [employer] [phone] Brian Dos Santos MD - Rheumatology Care Team Information [employer] [phone] Problems Active Problems Provider Date Restless legs Carmela Bales M.D. Onset: 01/14/2015 FH: Angina at less than 60 years Sol Hutchison M.D. Onset: 01/12/2019 Syncope and collapse Sol Hutchison M.D. Onset: 01/12/2019 Social History Type Date Description Comments Sex Unknown Tobacco Use Start: Unknown Never Smoked Cigars Tobacco Use Start: Unknown Never smoked cigarettes Smoking Status Reviewed: 05/18/19 Never smoked cigarettes Tobacco Use Start: Unknown Never Smoked A Pipe Smokeless Tobacco Never Used Smokeless Tobacco ETOH Use Occasionally consumes alcohol Tobacco Use Start: Unknown Patient has never smoked Recreational Drug Use Denies Drug Use Exercise Type/Frequency Exercises sporadically Allergies, Adverse Reactions, Alerts Active Allergies Reaction Severity Comments Date Sulfa Antibiotics 12/25/2013 Lyrica 12/25/2013 Environmental 12/21/2016 Levaquin facial flushing 12/21/2016 Biaxin facial fllushing 12/21/2016 Aspirin tinnitus 12/06/2018 Indomethacin 12/06/2018 Opiods make her very lightheaded 01/08/2019 Medications Active Medications SIG Qnty Indications Ordering Date Provider Fast Acting B12 sublingual daily 90tabs Brian Dos Santos, 01/17/2019 2500mcg M.D. Tablets Sub Metformin HCL 1 by mouth every Unknown 01/11/2019 500mg day Tablets Pramipexole take 4 by mouth 180tabs Carmela Bales, 06/19/2013 Dihydrochloride three hours prior M.D. 0.125mg to bed, may take Tablets additional 2 tablets as needed. Levothyroxine Sodium 1 po qd Unknown 75mcg Tablets Ventolin HFA 2 puffs by mouth Unknown 108(90Base) four times a day mcg/Act Aerosol as needed Furosemide 1 by mouth every Unknown 20mg Tablets other day. Metaxalone take 1 tablet po Unknown 800mg Tablets hs prn Pantoprazole Sodium 1 po qday Unknown 40mg Tablets DR Calcium Magnesium And 1 tab by mouth Unknown Zinc daily Iron 27 1 by mouth every Unknown 240(27Fe) mg day Tablets Symbicort 1 puff twice a Unknown 160-4.5mcg/Act day Aerosol History Medications Etodolac Take one capsule/tablet 30tabs Brian Dos Santos, 01/17/2019 - 500mg by mouth twice daily as M.D. 05/18/2019 Tablets needed for pain Vitamin D3 High 2 by mouth every day Unknown 01/11/2019 - Potency 01/29/2019 1000Unit Capsules Calcium 1000 + D 1 by mouth every day Unknown 01/11/2019 - 01/11/2019 [id number] Tablets Immunizations Description No Information Available Vital Signs Date Vital Result Comment 05/18/2019 9:21am Height 65 inches 5'5" Weight 206.00 lb Heart Rate 70 /min BP Systolic Sitting 124 mmHg BP Diastolic Sitting 72 mmHg Body Temperature 98.0 F Pain Level 8 O2 % BldC Oximetry 98 % BMI (Body Mass Index) 34.3 kg/m2 02/13/2019 9:34am Height 65 inches 5'5" Weight 204.00 lb Heart Rate 64 /min BP Systolic Sitting 124 mmHg Lue reg cuff BP Diastolic Sitting 70 mmHg Lue reg cuff BP Systolic Standing 116 mmHg Lue BP Diastolic Standing 68 mmHg Lue Respiratory Rate 16 /min BMI (Body Mass Index) 33.9 kg/m2 Ejection Fraction 55-60% 02/07/19 Results Test Acquired Date Facility Test Result H/L Range Note Lipid Profile 01/30/2019 [facility] Triglycerides 123 mg/dL 1 (Trig/Chol/HDL) [place], [place] [id number] [phone] Cholesterol 212 mg/dL 2 HDL Cholesterol 65.6 mg/dL 3 LDL Cholesterol 122 mg/dL 4 Laboratory test 01/08/2019 [facility] Ferritin 47.4 ng/mL Normal 11-307 5 finding [place], [place] [id number] [phone] Iron & Iron 01/08/2019 [facility] Iron 75 g/dL Normal 50- [address] [place] [address] [phone] Unsaturated Iron Binding < 376 g/dL Total Iron Binding Capacity 391 g/dL Normal 250-450 Transferrin 279 mg/dL Normal 203-362 % Iron Saturation 19 % Normal 15-55 Anca AB Ser If 12/06/2018 [facility] C-Anca Negative Negative [place], [place] [id number] [phone] P-Anca Negative Negative 6 Immunoglobulins 12/06/2018 [facility] Immunoglobulin G 804 mg/ dL 767 - 7 Serum Quant [address] [place] [address] [phone] Immunoglobulin M 12 mg/dL Abnormal 37 - 286 Immunoglobulin A 177 mg/dL 61 - 356 Vitamin B12 12/06/2018 [facility] Vitamin B12 301 pg/mL Normal 180-914 8 [place] [address] [phone] Folic Acid (Folate) 11.97 ng/mL >3.99 9 Laboratory 12/06/2018 [facility] Thyroperoxidase AB 0.27 Normal <9 10 test finding IU/[place] [address] [phone] CBC Auto Diff 12/06/2018 [facility] White Blood Count 5.7 Normal 3.5-1 10^3/uL 0.8 [place] [address] [phone] Red Blood Count 4.75 10^6/uL Normal 3.70-4.87 Hemoglobin 13.5 g/dL Normal 12.0-16.0 Hematocrit 40 % Normal 35-47 Mean Corpuscular Volume 84 fL Normal 80-97 Mean Corpuscular Hemoglobin 28 pg Normal 27-31 Mean Corpuscular HGB Conc 34 g/dL Normal 31-36 Red Cell Distribution Width 14 % Normal 10-15 Platelet Count 213 10^3/uL Normal 150-450 Mean Platelet Volume 8.2 fL Normal 7.4-10.4 Abs Neutrophils 4.5 10^3/uL Normal 1.5-7.7 Abs Lymphocytes 0.9 10^3/uL Low 1.0-4.8 Abs Monocytes 0.2 10^3/uL Normal 0-0.8 Abs Eosinophils 0.0 10^3/uL Normal 0-0.6 Abs Basophils 0.0 10^3/uL Normal 0-0.2 Abs Nucleated RBC 0.0 10^3/uL Granulocyte % 79.0 % Lymphocyte % 15.3 % Monocyte % 4.3 % Eosinophil % 0.6 % Basophil % 0.8 % Nucleated Red Blood Cells % 0.0 Comp Metabolic 12/06/2018 [facility] Sodium 140 mmol/L Normal 135-[address] [place] [id number] [phone] Potassium 4.2 mmol/L Normal 3.5-5.0 Chloride 107 mmol/L Normal 101-111 Co2 Carbon Dioxide 26 mmol/L Normal 22-32 Anion Gap 7 mmol/L Normal 2-11 Glucose 113 mg/dL High 70-100 Blood Urea Nitrogen 14 mg/dL Normal 6-24 Creatinine 0.82 mg/dL Normal 0.51-0.95 BUN/Creatinine Ratio 17.1 Normal 8-20 Calcium 9.4 mg/dL Normal 8.6-10.3 Total Protein 6.4 g/dL Normal 6.4-8.9 Albumin 4.3 g/dL Normal 3.2-5.2 Globulin 2.1 g/dL Normal 2-4 Albumin/Globulin Ratio 2.0 Normal 1-3 Total Bilirubin 0.30 mg/dL Normal 0.2-1.0 Alkaline Phosphatase 86 U/L Normal 34-104 Alt 20 U/L Normal 7-52 Ast 18 U/L Normal 13-39 Egfr Non- 72.9 >60 Egfr 88.2 >60 11 Hla B27 12/06/2018 [facility] Hla B27 Negative [address] [place] [address] [phone] Hla B27 Interp See Comment 13 Laboratory test 12/06/2018 [facility] Rheumatoid < 10 IU/mL Normal <15 [address] [place] [address] [phone] Anti Ssa/Ro <0.2 U 15 Anti SSB LA <0.2 U 16 Aso (Antistreptolysin O) Titer Negative IU/mL <200 Iu/mL 17 Magnesium 1.9 mg/dL Normal 1.9-2.7 18 Vitamin B6 12/06/2018 [facility] Pyridoxal 5-Phosphate 5 g/L 5-[address] [place] [address] [phone] Pyridoxic Acid 4 g/L 3-30 20 Laboratory 12/06/2018 [facility] Nuclear AB ([place]) <1:80 21 test finding [address] By Ifa Igg (Negative) [place] [address] [phone] Laboratory 12/06/2018 [facility] Cyclic 23.2 U Abnormal 22 test finding [address] [place] [address] Pep Igg [phone] Erythrocyte Sed Rate 25 mm/Hr Normal 0-29 23 C Reactive Protein 4.13 mg/L Normal <8.01 24 Creatine Kinase(CK) 180 U/L Normal 10-223 25 Aldolase 6.0 U/L <7.7 26 1 Desirable: <150 Borderline High: 150-199 High: 200-499 Very High: >500 2 Desirable: <200 Borderline High: 200-239 High: >239 3 Low: <40 Desirable: 40-60 High: >60 4 Desirable: <100 Near Optimal: 100-129 Borderline High: 130-159 High: 160-189 Very High: >189 5 Copy Result to: NATHAN BARNARD ([id number]) 6 Negative for cANCA and pANCA patterns by immunofluorescence. ADDITIONAL INFORMATION This test was developed and its performance characteristics determined by [facility] in a manner consistent with CLIA requirements. This test has not been cleared or approved by the U.S. Food and Drug Administration. Test Performed by: [facility] - [address] [address] 7 Test Performed by: [facility] - [address] [address] 8 Normal Range 180 to 914 Indeterminate Range 145 to 180 Deficient Range <145 9 Please check labs today 10 Please check labs today 11 Because ethnic data is not always readily [...] 15-29 5 Kidney failure <15 (or dialysis) 12 REFERENCE VALUE Not Applicable 13 RESULT: HLA-B27 antigen was not detected. ADDITIONAL INFORMATION Method: Flow Cytometry Performing Laboratory CLIA# [id number] Test Performed by: [facility] - [facility] [address] [place] [address] 14 Please check labs today 15 REFERENCE VALUE <1.0 (Negative) Test Performed by: [facility] - [address] [address] 16 REFERENCE VALUE <1.0 (Negative) Test Performed by: [facility] [place] [address] 17 Normal values may vary with age, season and geographic area. Titers above upper limits may be indicative of infection, however only a two dilution rise in titer is required to be considered significant. ASO titer will usually rise above upper limits within one week of exposure, increase to peak levels at 3-5 weeks and return to baseline level at 6-12 twelve months. 18 Please check labs today 19 ADDITIONAL INFORMATION This test was developed and its performance characteristics determined by [facility] in a manner consistent with CLIA requirements. This test has not been cleared or approved by the U.S. Food and Drug Administration. 20 ADDITIONAL INFORMATION This test was developed and its performance characteristics determined by [facility] in a manner consistent with CLIA requirements. This test has not been cleared or approved by the U.S. Food and Drug Administration. Test Performed by: [facility] [address] 21 <1:80 (Negative) REFERENCE VALUE <1:80 (Negative) Test Performed by: [facility] [place] [address] 22 Interpretation: Weak Positive (20.0-39.9) REFERENCE VALUE <20.0 (Negative) Test Performed by: [facility] [place] [address] 23 Please check labs today 24 Please check labs today 25 Please check labs today 26 Test Performed by: [facility] [address] [facility], [place] [address] Procedures Date Code Description Status 02/07/2019 01676 ECHO Transthoracic, Real-Time 2D With Doppler And Color Completed Flow 02/07/2019 98949 ECHO Transthoracic, Real-Time 2D With Doppler And Color Completed Flow 01/30/2019 48927 Stress Test Completed 01/12/2019 06927 EKG Tracing & Interpretation Completed 01/08/2019 24059 Nasal Endoscopy, Diagnostic Completed Medical Devices Description No Information Available Encounters Type Date Location Provider Dx Diagnosis Office Visit 02/13/2019 [facility] Sol Hutchison, R06.02 Shortness of 9:45a [facility] M.D. breath Z82.49 Family hx of ischem heart dis and oth dis of the circ sys Office Visit 01/17/2019 Rheumat[facility] Brian M06.4 Inflammatory 2:40p [facility] Dos Santos M.D. 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 breath R07.9 Chest pain, unspecified R55 Syncope and collapse Z82.49 Family hx of ischem heart dis and oth dis of the circ sys E11.8 Type 2 diabetes mellitus with unspecified complications Office Visit 01/08/2019 11:00a [facility] Of Frankie Pacheco, J32.3 Chronic C.M.A. AT M.D. sphenoidal Bryant sinusitis Office Visit 01/02/2019 8:30a [facility], G25.81 Restless legs [facility] M.D. syndrome Of Dmitry J32.8 Other chronic sinusitis R07.9 Chest pain, unspecified G57.12 Meralgia paresthetica, left lower limb Office Visit 12/06/2018 Rheumatology Brian M06.4 Inflammatory 10:00a [facility] Dos Santos M.D. 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 [IgM] 05/18/2019 E53.8 Deficiency of other specified B group Brian Dos Santos M.D. vitamins 05/18/2019 Z79.1 watermelon inspector (current) use of non-steroidal Brian Dos Santos M.D. anti-inflammatories (Nsaid) 05/18/2019 M06.4 Inflammatory polyarthropathy Brian Dos Santos M.D. 02/13/2019 R06.02 Shortness of breath Sol Hutchison M.D. 02/13/2019 Z82.49 Family history of ischemic heart disease and Sol Hutchison M.D. other diseases of the circulatory system 02/07/2019 R07.9 Chest pain, unspecified Sol Hutchison M.D. 02/07/2019 R07.9 Chest pain, unspecified Ica ECHO Schedule 02/07/2019 R06.02 Shortness of breath Sol Hutchison M.D. 02/07/2019 R06.02 Shortness of breath Ica ECHO Schedule 02/07/2019 Z82.49 Family history of ischemic heart disease and Sol Hutchison M.D. other diseases of the circulatory system 02/07/2019 Z82.49 Family history of ischemic heart disease and Ica ECHO Schedule other diseases of the circulatory system 01/30/2019 R07.9 Chest pain, unspecified Sol Hutchison M.D. 01/17/2019 M06.4 Inflammatory polyarthropathy Brian Dos Santos M.D. 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 [IgM] 01/17/2019 E53.8 Deficiency of other specified B group Brian Dos Santos M.D. vitamins 01/17/2019 Z79.1 detention (current) use of non-steroidal Brina Dos Santos M.D. anti-inflammatories (Nsaid) 01/12/2019 R06.02 Shortness of breath Sol Hutchison M.D. 01/12/2019 R07.9 Chest pain, unspecified Sol Hutchison M.D. 01/12/2019 R55 Syncope and collapse Sol Hutchison M.D. 01/12/2019 Z82.49 Family history of ischemic heart disease and Sol Hutchison M.D. other diseases of the circulatory system 01/12/2019 E11.8 Type 2 diabetes mellitus with unspecified Sol Hutchison M.D. complications 01/08/2019 J32.3 Chronic sphenoidal sinusitis Frankie Pacheco M.D. 01/02/2019 G25.81 Restless legs syndrome Carmela Bales M.D. 01/02/2019 J32.8 Other chronic sinusitis Carmela Bales M.D. 01/02/2019 R07.9 Chest pain, unspecified Carmela Bales M.D. 01/02/2019 G57.12 Meralgia paresthetica, left lower limb Carmela Bales M.D. 12/06/2018 M06.4 Inflammatory polyarthropathy Brian Dos Santos M.D. 12/06/2018 R76.0 Raised antibody titer Brian Dos Santos M.D. 12/06/2018 R20.8 Other disturbances of skin sensation Brian Dos Santos M.D. 12/06/2018 M65.879 Other synovitis and tenosynovitis, Brian Dos Santos M.D. unspecified ankle and foot 12/06/2018 M54.5 Low back pain Brian Dos Santos M.D. 12/06/2018 Z79.1 detention (current) use of non-steroidal Brian Dos Santos M.D. anti-inflammatories (Nsaid) Plan of Treatment Future Appointment(s):11/16/2019 9:00 am - Brian Dos Santos M.D. 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 You could use a countertop, a doorknob, or the back of a sturdy chair.With your knees slightly bent, bend forward with your arms straight. Lower your upper body, and letyour shoulders stretch.As your shoulders are able to stretch farther, you may need to take a step ortwo backward.Hold for at least 15 to 30 seconds. Then stand up and relax. If you had stepped back during your stretch, step forward so you can keep your hands on the solid surface.Repeat 2 to 4 times. Functional Status Description No Information Available Mental Status Description No Information Available Referrals Refer to Reason for Referral Status Appt Date Darren Sow MD Please evaluate and treat an IGM deficiency Sent for an immunodeficiency [address] [facility] [place] [address] [place] [address] [phone] Frankie Pacheco MD continued difficulty with sinuses and voice Scheduled also, just made aware of CT Maxillofacial results from 09/01/15 that reference need for vascular studies which have not been done. Results scanned into [address] [address] [phone] Sol Hutchison MD family history of early heart attack in Scheduled 2018 maternal relatives: Aunt: 19 yo, GGM: 38 yo, GM: 74; with maternal grandparents first cousins Also has: 1. chest pain and shortness of breath with exersion 2. episodes of syncope when just sitting (diagnosed with vasal vasal syncope in past; tilt table at [facility] [address] [place] [address] [phone]
--- OUTSIDE RECORDS SUMMARY | 2019-06-19 19:59 | XMS REPORT | Continuity of Care Document ---
:1965 External Reference #:[id number] Author Name Davey Toney DO Address [address] [place] [id number] Care Team Providers Name Role Phone Alonzoaleah Cory - Pulmonary Disease Care Team Information Departure Clerk Dorcas Stewart MD - Cardiovascular Care Team Information Departure Clerk [phone] Disease Hali Amaya MD - Obstetrics & Care Team Information Departure Clerk [phone] Gynecology Luis Koroma MD - Otolaryngology Care Team Information Departure Clerk [phone] Carmela Bales - Neurology Care Team Information Departure Clerk [phone] - Rheumatology Care Team Information Departure Clerk [phone] Kane Ramirez MD - Orthopaedic Care Team Information Departure Clerk Surgery Brian Dos Santos DR - Rheumatology Care Team Information Departure Clerk [phone] Problems Active Problems Provider Date Hypothyroidism Davey Toney DO Onset: 04/09/2014 Raynaud's disease Davey Toney DO Onset: 04/09/2014 Cervical disc disorder Davey Toney DO Onset: 04/09/2014 Obstructive sleep apnea syndrome Davey Toney DO Onset: 04/09/2014 Collagen disease Davey Toney DO Onset: 04/09/2014 Rheumatoid arthritis Davey Toney DO Onset: 04/09/2014 Irritable bowel syndrome Davey Toney DO Onset: 04/09/2014 Meniere's disease Davey ToneyDO Onset: 04/09/2014 Chronic sinusitis Brien ToneyewDO Onset: 04/09/2014 Chronic fatigue syndrome Davey Toney DO Onset: 04/09/2014 Allergic rhinitis ToneyBrien raeewDO Onset: 04/09/2014 Asthma without status asthmaticus Brien ToneyewDO Onset: 04/09/2014 Fibromyositis Brien ToneyewDO Onset: 04/09/2014 Gastroesophageal reflux disease Brien ToneyewDO Onset: 04/09/2014 Myalgia & Myositis Unspecified ToneyBrien raeewDO Onset: 05/15/2014 Fibromyalgia Brien ToneyewDO Onset: 01/07/2015 Peptic reflux disease Davey Toney DO Onset: 05/15/2014 Hypothyroidism ToneyBrien raeewDO Onset: 05/15/2014 Allergic rhinitis due to pollen ToneyBrien raeewDO Onset: 05/15/2014 Social History Type Date Description [...] wheezing Valacyclovir HCL Take 2 Tablets 12tabs Daevy Toney, 12/19/2014 1gm By Mouth Twice A [...] CPT Code Status Date Vaccine Lot # [id number] Given 02/16/2019 Afluria Or Fluvirin Flu Vac Intramuscular 41528 Given 06/06/2018 Pneumococcal 23 Immunization Adult Or [id number] Immunosuppressed Patient 67081 Given 06/06/2018 Tdap (Adacel) Ages 7 And Above Only [id number] 81313 Given 02/22/2018 Influenza Vac, Quadrivalent, Split, 0.5mL Dosage, Im Use [id number] Given 03/13/2017 Afluria Imunization Q2035 Refused 01/18/2018 Afluria Imunization Vital Signs Date Vital Result Comment 05/01/2019 8:34am Weight 202.00 lb Heart Rate 70 /min BP Systolic 112 mmHg BP Diastolic 64 mmHg Respiratory Rate 16 /min Height 64.5 inches 5'4.50" BMI (Body Mass Index) 34.1 kg/m2 03/27/2019 8:39am Weight 200.00 lb Heart Rate 68 /min BP Systolic 122 mmHg BP Diastolic 82 mmHg Respiratory Rate 18 /min Height 64.5 inches 5'4.50" BMI (Body Mass Index) 33.8 kg/m2 Results Test Acquired Date Facility Test Result H/L Range Note Rapid Influenza 04/24/2019 [facility] Influenza A NEGATIVE Negative A & B Molecular Molecular Influenza B Molecular NEGATIVE Negative 1 Laboratory test 03/09/2019 [facility] Hemoglobin A1c 5.8 % High 4.0-5.6 2 finding 1 Watershed Engineer: [id number] 2 Therapeutic target for the treatment of diabetes mellitus patients is <7% HBA1C, and in selective patients <6.0%. Please refer to [place] [employer] diabetic care guidelines for further information. Procedures Date Code Description Status 05/01/2019 28640 Omt 3-4 Body Regions Completed 03/27/2019 56081 Omt 3-4 Body Regions Completed 02/20/2019 66076 Omt 3-4 Body Regions Completed 01/23/2019 61073 Omt 3-4 Body Regions Completed Medical Devices Description No Information Available Encounters Type Date Location Provider Dx Diagnosis Office Visit 03/27/2019 8:30a [facility] Davey Toney DO M54.2 Cervicalgia M99.01 Segmental and somatic dysfunction of cervical region M54.5 Low back pain R73.03 Prediabetes M25.571 Pain in RIGHT ankle and joints of RIGHT foot R20.9 Unspecified disturbances of skin sensation M06.4 Inflammatory polyarthropathy 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] R06.02 Shortness of breath M79.7 Fibromyalgia E66.9 Obesity, unspecified Z68.33 Body mass index (BMI) 33.0-33.9, adult Office Visit 02/20/2019 8:30a [facility] Davey Toney DO M54.2 Cervicalgia M99.01 [...] breath M79.7 Fibromyalgia Office Visit 01/23/2019 8:00a [facility] T[facility]Dave[facility], DO M79.7 Fibromyalgia M54.2 Cervicalgia M99.01 Segmental [...] 33.0-33.9, adult Assessments Date Code Description Provider 05/01/2019 M54.5 Low back pain Feng Davey, DO 05/01/2019 M99.01 Segmental and somatic dysfunction of cervical Davey Toney, region 05/01/2019 M54.2 Cervicalgia Davey Toney, DO 05/01/2019 R20.9 Unspecified disturbances of skin sensation Davey Toney, DO 05/01/2019 M79.7 Fibromyalgia Davey Toney, DO 05/01/2019 R06.02 Shortness of breath Davey Toney, DO 05/01/2019 M25.571 Pain in RIGHT ankle and joints of RIGHT foot Davey Toney, 05/01/2019 R73.03 Prediabetes Davey Toney, DO 05/01/2019 E66.9 Obesity, unspecified Davey Toney, DO 05/01/2019 M06.4 Inflammatory polyarthropathy Davey Toney, DO 05/01/2019 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] Davey Toney, DO 05/01/2019 J06.9 Acute upper respiratory infection, unspecified Davey Toney, DO 05/01/2019 Z68.34 Body mass index (BMI) 34.0-34.9, adult Davey Toney DO 03/27/2019 M54.2 Cervicalgia Davey Toney, DO 03/27/2019 M99.01 Segmental and somatic dysfunction of cervical Davey Toney, DO region 03/27/2019 M54.5 Low back pain Davey [...] dysfunction of cervical Davey Toney, DO region 02/20/2019 M54.5 Low back pain Davey [...] somatic dysfunction of cervical Davey Toney, region 01/23/2019 M54.5 Low back pain Davey Toney DO 01/23/2019 R73.03 Prediabetes Davey Toney, DO 01/23/2019 M25.571 Pain in RIGHT ankle and joints of RIGHT foot Davey Toney, DO 01/23/2019 M99.00 Segmental and somatic dysfunction of head Davey Toney, region 01/23/2019 M99.02 Segmental and somatic dysfunction of thoracic Davey Toney, region 01/23/2019 M99.07 Segmental and somatic dysfunction of upper Davey Toney DO extremity 01/23/2019 R20.9 Unspecified disturbances of skin sensation Davey Toney, 01/23/2019 E66.9 Obesity, unspecified Davey Toney, DO 01/23/2019 M06.4 Inflammatory polyarthropathy Davey Toney, 01/23/2019 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] ToneyDaveyDO 01/23/2019 R06.02 Shortness of breath Davey Toney, DO 01/23/2019 Z68.33 Body mass index (BMI) 33.0-33.9, adult FengDaveyDO Plan of Treatment Future Appointment(s):06/05/2019 8:30 am - Feng [facility]yDO at [facility]05/01/2019 - FengDavey, DOM54.5 Low back painFollow up:Follow up as scheduled.M99.01 Segmental and somatic dysfunction of cervical iyxiqcK49.2 PugtrbiluzbO60.9 Unspecified disturbances of skin llkhzziujF94.7 CyrrulqglromD67.02 Shortness of tvdbxdJ22.571 Pain in RIGHT ankle and joints of RIGHT footR73.03 DcdtqhhjoesW63.9 Obesity, unspecifiedComments:The patient had gained around 2lbs of body weight since the previous visit and he currently weighs around 202lbs. A detailed discussion was had with the patient regarding his body weight and BMI. He was made aware about the health hazards of obesity including diabetes, hypertension, cardiac diseases, and other various risk factors. He was advised to maintain a healthy and low-calorie diet and a regular exercise regimen which will help him lose weight.M06.4 Inflammatory tkxyekmkatrhdlcI52.4 Selective deficiency of immunoglobulin M [IgM]J06.9 Acute upper respiratory infection, unspecifiedComments:Improved at the present time. Will call or return if worsening.Z68.34 Body mass index (BMI) 34.0-34.9, adultComments:BMI is at 34.1. The patient should try to lose weight with low- calorie diet and exercises. We willcontinue to monitor weight and BMI periodically. Functional Status Description No Information Available Mental Status Description No Information Available Referrals Description No Information Available
--- OUTSIDE RECORDS SUMMARY | 2019-06-19 19:59 | XMS REPORT | Continuity of Care Document ---
:1965 External Reference #:[id number] Author Name Davey Toney DO Address [address] [place] [id number] Care Team Providers Name Role Phone Alonzoaleah Cory - Pulmonary Disease Care Team Information Photographic Laboratory Supervisor [phone] Dorcas Stewart MD - Cardiovascular Care Team Information Photographic Laboratory Supervisor [phone] Disease Hali Amaya MD - Obstetrics & Care Team Information Photographic Laboratory Supervisor Gynecology Luis Koroma MD - Otolaryngology Care Team Information Photographic Laboratory Supervisor Carmela Bales - Neurology Care Team Information Photographic Laboratory Supervisor [phone] - Rheumatology Care Team Information Photographic Laboratory Supervisor Kane Ramirez MD - Orthopaedic Care Team Information Photographic Laboratory Supervisor Surgery Brian Dos Santos DR - Rheumatology Care Team Information Photographic Laboratory Supervisor [phone] Problems Active Problems Provider Date Hypothyroidism Davey [...] qd Unknown Tablets Lodine Unknown 400mg Tablets Nabumetone 1 by mouth twice 60tabs Davey Toney, 750mg Tablets a day DO Medications Administered in Office Medication SIG Qnty Indications Ordering Provider Date Depo Medrol 80 MG Davey Toney DO 05/24/2017 Injection Immunizations CPT Code Status Date Vaccine Lot # [id number] Given 02/16/2019 Afluria Or Fluvirin Flu Vac Intramuscular 71492 Given 06/06/2018 Pneumococcal 23 Immunization Adult Or [id number] Immunosuppressed Patient 43881 Given 06/06/2018 Tdap (Adacel) Ages 7 And Above Only [id number] 87114 Given 02/22/2018 Influenza Vac, Quadrivalent, Split, 0.5mL Dosage, Im Use Q2035 Given 03/13/2017 Afluria Imunization Q2035 Refused 01/18/2018 Afluria Imunization Vital Signs Date Vital Result Comment 06/05/2019 8:37am Weight 204.00 lb Heart Rate 88 /min BP Systolic 120 mmHg BP Diastolic 64 mmHg Respiratory Rate 18 /min Height 64.5 inches 5'4.50" BMI (Body Mass Index) 34.5 kg/m2 05/01/2019 8:34am Weight 202.00 lb Heart Rate 70 /min BP Systolic 112 mmHg BP Diastolic 64 mmHg Respiratory Rate 16 /min Height 64.5 inches 5'4.50" BMI (Body Mass Index) 34.1 kg/m2 Results Test Acquired Date Facility Test Result H/L Range Note Rapid Influenza 04/24/2019 [facility] Influenza A NEGATIVE Negative A & B Molecular Molecular Influenza B Molecular NEGATIVE Negative 1 Laboratory test 03/09/2019 [facility] Hemoglobin A1c 5.8 % High 4.0-5.6 2 finding 1 Nylon Operator: [id number] 2 Therapeutic target for the treatment of diabetes mellitus patients is <7% HBA1C, and in selective patients <6.0%. Please refer to [place] [employer] diabetic care guidelines for further information. Procedures Date Code Description Status 06/05/2019 69926 Omt 3-4 Body Regions Completed 05/01/2019 85036 Omt 3-4 Body Regions Completed 03/27/2019 95006 Omt 3-4 Body Regions Completed 02/20/2019 46261 Omt 3-4 Body Regions Completed 01/23/2019 96101 Omt 3-4 Body Regions Completed Medical Devices Description No Information Available Encounters Type Date Location Provider Dx Diagnosis Office Visit 05/01/2019 8:30a [facility] Davey Toney DO M54.5 Low back pain M99.01 Segmental and somatic dysfunction of cervical region M54.2 Cervicalgia R20.9 Unspecified disturbances of skin sensation M79.7 Fibromyalgia R06.02 Shortness of breath M25.571 Pain in RIGHT ankle and joints of RIGHT foot R73.03 Prediabetes E66.9 Obesity, unspecified M06.4 Inflammatory polyarthropathy 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] J06.9 Acute upper respiratory infection, unspecified Z68.34 Body mass index (BMI) 34.0-34.9, adult Office Visit 03/27/2019 8:30a [facility] Davey Toney DO M54.2 Cervicalgia M99.01 Segmental [...] (BMI) 33.0-33.9, adult Office Visit 02/20/2019 8:30a [facility] Davey Toney DO M54.2 Cervicalgia M99.01 Segmental [...] breath M79.7 Fibromyalgia Office Visit 01/23/2019 8:00a [facility] Davey Toney DO M79.7 Fibromyalgia M54.2 Cervicalgia [...] 33.0-33.9, adult Assessments Date Code Description Provider 06/05/2019 M54.5 Low back pain Davey Toney, 06/05/2019 M99.01 Segmental and somatic dysfunction of cervical Davey Toney, region 06/05/2019 M54.2 Cervicalgia Davey Toney, 06/05/2019 R20.9 Unspecified disturbances of skin sensation Davey Toney, 06/05/2019 M79.7 Fibromyalgia Davey Toney, DO 06/05/2019 R06.02 Shortness of breath Davey Toney, 06/05/2019 M25.571 Pain in RIGHT ankle and joints of RIGHT foot Davey Toney, DO 06/05/2019 R73.03 Prediabetes Davey Toney, DO 06/05/2019 M06.4 Inflammatory polyarthropathy Davey Toney, DO 06/05/2019 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] Davey Toney, DO 06/05/2019 E66.9 Obesity, unspecified Davey Toney, DO 06/05/2019 Z68.34 Body mass index (BMI) 34.0-34.9, adult Davey Toney, DO 05/01/2019 M54.5 Low back pain Davey Toney, DO 05/01/2019 M99.01 Segmental and somatic dysfunction of cervical Davey Toney, DO region 05/01/2019 M54.2 Cervicalgia Davey Toney, DO 05/01/2019 R20.9 Unspecified disturbances of skin sensation Davey Toney, DO 05/01/2019 M79.7 Fibromyalgia Davey Toney, DO 05/01/2019 R06.02 Shortness of breath Davey Toney, DO 05/01/2019 M25.571 Pain in RIGHT ankle and joints of RIGHT foot Davey Toney, DO 05/01/2019 R73.03 Prediabetes Davey Toney, DO 05/01/2019 E66.9 Obesity, unspecified Davey Toney, DO 05/01/2019 M06.4 Inflammatory polyarthropathy Davey Toney, DO 05/01/2019 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] Davey Toney, DO 05/01/2019 J06.9 Acute upper respiratory infection, unspecified Davey Toney, DO 05/01/2019 Z68.34 Body mass index (BMI) 34.0-34.9, adult Davey Toney, DO 03/27/2019 M54.2 Cervicalgia Davey Toney, DO [...] breath Davey Toney, DO 02/20/2019 M79.7 Fibromyalgia ToneyDavey rae, DO 01/23/2019 M79.7 Fibromyalgia Davey Toney, DO 01/23/2019 M54.2 Cervicalgia Davey Toney, DO 01/23/2019 M99.01 Segmental and somatic dysfunction of cervical Davey Toney DO region 01/23/2019 M54.5 Low back pain Davey ToneyDO 01/23/2019 R73.03 Prediabetes Davey ToneyDO 01/23/2019 M25.571 Pain in RIGHT ankle and joints of RIGHT foot Davey ToneyDO 01/23/2019 M99.00 Segmental and somatic dysfunction of head Davey Toney region 01/23/2019 M99.02 Segmental and somatic dysfunction of thoracic Davey ToneyDO region 01/23/2019 M99.07 Segmental and somatic dysfunction of upper Davey Tonye extremity 01/23/2019 R20.9 Unspecified disturbances of skin sensation Davey ToneyDO 01/23/2019 E66.9 Obesity, unspecified Davey ToneyDO 01/23/2019 M06.4 Inflammatory polyarthropathy Davey ToneyDO 01/23/2019 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] Davey ToneyDO 01/23/2019 R06.02 Shortness of breath Davey ToneyDO 01/23/2019 Z68.33 Body mass index (BMI) 33.0-33.9, adult Feng DO Davey Plan of Treatment Future Appointment(s):07/24/2019 8:30 am - [facility] - FengDavey DOM54.5 Low back painFollow up:Follow up as scheduled.M99.01 Segmental and somatic dysfunction of cervical ksekmpL29.2 BieeksctsfwQ66.9 Unspecified disturbances of skin pqdqbmtmiS48.7 OpcztfpioklkT02.02 Shortness of ujukqyR97.571 Pain in RIGHT ankle and joints of RIGHT footR73.03 DcwwhtdrodyW33.4 Inflammatory muczcgxaagaffdwM89.4 Selective deficiency of immunoglobulin M [IgM]E66.9 Obesity, unspecifiedComments:The patient had gained around 2lbs of body weight since the previous visit and he currently weighs around 204lbs. A detailed discussion was had with the patient regarding his body weight and BMI. He was made aware about the health hazards of obesity including diabetes, hypertension, cardiac diseases, and other various risk factors. He was advised to maintain a healthy and low-calorie diet and a regular exercise regimen which will help him lose weight.Z68.34 Body mass index (BMI) 34.0-34.9, adultComments:BMI is at 34.5. The patient should try to lose weight with low-calorie diet and exercises. We willcontinue to monitor weight and BMI periodically. Functional Status Description No Information Available Mental Status Description No Information Available Referrals Description No Information Available
[2019-06-19 20:07] VITALS: BP 144/84
[2019-06-19 20:15] LABS: Influenza A Molecular POSITIVE (Negative)
[2019-06-19] MEDS ORDERED: Acetaminophen TAB* 325 MG PO ONE (20:17)
[2019-06-19] MEDS ORDERED: Oseltamivir CAP* 75 MG CAP PO ONE (20:38)
--- NOTE | 2019-06-19 20:39 | UC ---
Respiratory Complaint HPI - HPI Summary HPI Summary: 54 you female with the onset of f/c, cough and runny nose Hx of asthma no wheezing - History of Current Complaint Chief Complaint: UCGeneralIllness Stated Complaint: SINUS/HEADACHE/FEVER Hx Obtained From: Patient Hx Last Menstrual Period: 1.5weeks Onset/Duration: Gradual Onset, Lasting Hours Timing: Constant Severity Initially: Mild Severity Currently: Severe Pain Intensity: 8 Pain Scale Used: 0-10 Numeric Character: Cough: Nonproductive Aggravating Factors: Nothing Alleviating Factors: Nothing Associated Signs And Symptoms: Positive: Fever, Chills, Nasal Congestion, Sinus Discomfort - Allergies/Home Medications Allergies/Adverse Reactions: Allergies Allergy/AdvReac Type Severity Reaction Status Date / Time aspirin Allergy Tinnitus Verified 06/19/19 20:07 clarithromycin Allergy Facial Verified 06/19/19 20:07 Redness/Flushing levofloxacin Allergy Facial Verified 06/19/19 20:07 Redness/Flushing pregabalin Allergy Swelling Verified 06/19/19 20:07 Sulfa (Sulfonamide Allergy Hives Verified 06/19/19 20:07 Antibiotics) Home Medications: Home Medications Levothyroxine TAB* [Synthroid 75 MCG TAB*] 75 mcg PO 0800 07/19/12 [History Confirmed 06/19/19] Pramipexole TAB* [Mirapex TAB*] 3 - 5 tab PO BEDTIME 07/19/12 [History Confirmed 06/19/19] Furosemide TAB* [Lasix TAB*] 20 mg PO EVERY OTHER DAY 05/08/15 [History Confirmed 06/19/19] Albuterol 2.5MG/3ML (0.083%)* [Ventolin 2.5 MG/3 ML NEB.COLE*] 2.5 mg INH Q12H # 1 box 06/15/18 [Rx Confirmed 06/19/19] Nabumetone TAB* [Relafen TAB*] 500 mg PO BID PRN 06/15/18 [History Confirmed 07/05] Budesonide/Formote 160/4.5(NF) [Symbicort 160/4.5 (NF)] 1 puff INH BID 04/24/19 [History Confirmed 06/19/19] metFORMIN* [Glucophage 500 MG TAB *] 500 mg PO DAILY 04/24/19 [History Confirmed 06/19/19] D-Methorphan/PE/Acetaminophen [Day Time Cold-Flu Liquid] 237 ml PO DAILY [History Confirmed 06/19/19] Oseltamivir CAP* [Tamiflu CAP*] 75 mg PO BID #9 cap 06/19/19 [Rx] PMH/Surg Hx/FS Hx/Imm Hx Previously Healthy: Yes Cardiovascular History: Hypertension Respiratory History: Asthma - Surgical History Surgical History: Yes Surgery Procedure, Year, and Place: septoplasty,, appendectomy, radiofrequency tx in neck. Breast augmentation 2006. sinus surgery 10/31 with tubes in ears - Family History Known Family History: Positive: Hypertension, Respiratory Disease - copd, asthma Negative: Cardiac Disease - Social History Alcohol Use: Occasionally Substance Use Type: None Smoking Status (MU): Never Smoked Tobacco Review of Systems All Other Systems Reviewed And Are Negative: Yes Constitutional: Positive: Fever, Chills, Fatigue Skin: Positive: Negative Eyes: Positive: Negative ENT: Positive: Nasal Discharge, Sinus Congestion, Sinus Pain/Tenderness Respiratory: Positive: Cough Cardiovascular: Positive: Negative Gastrointestinal: Positive: Negative Genitourinary: Positive: Dysuria, Vaginal/Penile Itching Neurovascular: Positive: Negative Musculoskeletal: Positive: Myalgia Neurological/Mental Status: Positive: Headache Psychological: Positive: Negative Physical Exam Triage Information Reviewed: Yes Appearance: Well-Appearing, No Pain Distress, Well-Nourished Vital Signs: Initial Vital Signs Temp 102.7 F 06/19/19 20:03 Pulse 106 06/19/19 20:03 Resp 20 06/19/19 20:03 BP 144/84 06/19/19 20:03 Pulse Ox 100 06/19/19 20:03 Vital Signs Reviewed: Yes Eyes: Positive: Conjunctiva Clear ENT: Positive: Hearing grossly normal, Nasal congestion, Nasal drainage, Uvula midline. Negative: Tonsillar swelling, Tonsillar exudate, Trismus, Muffled voice, Hoarse voice Neck: Positive: Supple, Nontender, No Lymphadenopathy Respiratory: Positive: Lungs clear, Normal breath sounds, No respiratory distress, No accessory muscle use Cardiovascular: Positive: RRR, No Murmur Abdomen Description: Positive: Nontender, No Organomegaly, Soft. Negative: CVA Tenderness (R), CVA Tenderness (L) Bowel Sounds: Positive: Present Musculoskeletal: Positive: ROM Intact, No Edema Neurological: Positive: Alert Psychological Exam: Normal Skin Exam: Normal Diagnostics - Laboratory Lab Results: influneza A + Respiratory Course/Dx - Differential Dx/Diagnosis Provider Diagnosis: Influenza A Discharge ED - Sign-Out/Discharge Documenting (check all that apply): Patient Departure All imaging exams completed and their final reports reviewed: No Studies - Discharge Plan Condition: Stable Disposition: HOME Prescriptions: Oseltamivir CAP* [Tamiflu CAP*] 75 mg PO BID #9 cap Patient Education Materials: Influenza (ED) Forms: *Work Release Referrals: Davey Toney DO [Primary Care Provider] - 7 Days (if not better) - Billing Disposition and Condition Condition: STABLE Disposition: Home
== END 2019-06-19 20:51 | disposition home or self-care (01) ==
LOC: UCCORT 19:52
DX: J10.1 Influenza due to other identified influenza virus with other respiratory manifestations (principal); J45.909 Unspecified asthma, uncomplicated; Z88.6 Allergy status to analgesic agent; Z88.1 Allergy status to other antibiotic agents; Z88.8 Allergy status to other drugs, medicaments and biological substances; Z88.2 Allergy status to sulfonamides; Z79.51 Long term (current) use of inhaled steroids
CPT/HCPCS: 99212; A9270-GY; G0463

== ENCOUNTER 2019-06-25 19:24 | Emergency (ER) | payer BC ==
[2019-06-25 20:07] VITALS: BP 131/78
--- NOTE | 2019-06-25 20:37 | UC ---
Throat Pain/Nasal Nasim HPI - HPI Summary HPI Summary: 54-year-old woman comes in with a chief complaint of one week of influenza and upper respiratory tract infection symptoms. Patient was diagnosed with influenza one week ago and treated with Tamiflu. She started getting better however she is then developed sinus pressure yellow rhinorrhea and also a cough from the postnasal drip. Reports minimal chest congestion. She has tried Tessalon Perles which are not helping much with cough. - History of Current Complaint Chief Complaint: UCGeneralIllness Stated Complaint: SINUS COMPLAINT Time Seen by Provider: 06/25/19 20:05 Hx Last Menstrual Period: 1.5weeks Pain Intensity: 5 - Allergies/Home Medications Allergies/Adverse Reactions: Allergies Allergy/AdvReac Type Severity Reaction Status Date / Time aspirin Allergy Tinnitus Verified 06/25/19 20:07 clarithromycin Allergy Facial Verified 06/25/19 20:07 Redness/Flushing levofloxacin Allergy Facial Verified 06/25/19 20:07 Redness/Flushing pregabalin Allergy Swelling Verified 06/25/19 20:07 Sulfa (Sulfonamide Allergy Hives Verified 06/25/19 20:07 Antibiotics) Home Medications: Home Medications Levothyroxine TAB* [Synthroid 75 MCG TAB*] 75 mcg PO 0800 07/19/12 [History Confirmed 06/25/19] Pramipexole TAB* [Mirapex TAB*] 3 - 5 tab PO BEDTIME 07/19/12 [History Confirmed 06/25/19] Furosemide TAB* [Lasix TAB*] 20 mg PO EVERY OTHER DAY 05/08/15 [History Confirmed 06/25/19] Albuterol 2.5MG/3ML (0.083%)* [Ventolin 2.5 MG/3 ML NEB.COLE*] 2.5 mg INH Q12H # 1 box 06/15/18 [Rx Confirmed 06/25/19] Nabumetone TAB* [Relafen TAB*] 500 mg PO BID PRN 06/15/18 [History Confirmed 01/05] Budesonide/Formote 160/4.5(NF) [Symbicort 160/4.5 (NF)] 1 puff INH BID 04/24/19 [History Confirmed 06/25/19] metFORMIN* [Glucophage 500 MG TAB *] 500 mg PO DAILY 04/24/19 [History Confirmed 06/25/19] Amoxicillin/Clavulanate TAB* [Augmentin TAB 875*] 875 mg PO BID #20 tab [Rx] Cetirizine* [ZyrTEC 10 MG TAB*] 10 mg PO DAILY 06/25/19 [History Confirmed 06/24] guaiFENesin/CODIENE 100mg/10mg [Robitussin AC 100Mg/10Mg in 5 ml] 10 ml PO Q4H PRN #180 ml MDD 60ml 06/25/19 [Rx] PMH/Surg Hx/FS Hx/Imm Hx Previously Healthy: Yes Endocrine History: Diabetes, Hypothyroidism - Surgical History Surgical History: Yes Surgery Procedure, Year, and Place: septoplasty,, appendectomy, radiofrequency tx in neck. Breast augmentation 2006. sinus surgery 10/31 with tubes in ears - Family History Known Family History: Positive: Hypertension, Respiratory Disease - copd, asthma Negative: Cardiac Disease - Social History Alcohol Use: Occasionally Substance Use Type: None Smoking Status (MU): Never Smoked Tobacco Review of Systems All Other Systems Reviewed And Are Negative: Yes Constitutional: Positive: Other - SEE HPI Skin: Positive: Negative Eyes: Positive: Negative ENT: Positive: Sore Throat, Nasal Discharge, Sinus Congestion, Sinus Pain/ Tenderness Respiratory: Positive: Cough - SEE HPI Cardiovascular: Positive: Negative Gastrointestinal: Positive: Negative Motor: Positive: Negative Neurovascular: Positive: Negative Musculoskeletal: Positive: Negative Neurological/Mental Status: Positive: Negative Psychological: Positive: Negative Is Patient Immunocompromised?: No Physical Exam Triage Information Reviewed: Yes Appearance: No Pain Distress, Well-Nourished, Ill-Appearing - MILD Vital Signs: Initial Vital Signs Temp 99.2 F 06/25/19 20:02 Pulse 65 06/25/19 20:02 Resp 18 06/25/19 20:02 BP 131/78 06/25/19 20:02 Pulse Ox 100 06/25/19 20:02 Vital Signs Reviewed: Yes Eye Exam: Normal Eyes: Positive: Conjunctiva Clear ENT: Positive: Pharyngeal erythema, Nasal congestion, Nasal drainage, TMs normal Neck: Positive: Supple Respiratory: Positive: Lungs clear, Normal breath sounds, No respiratory distress Cardiovascular: Positive: RRR Musculoskeletal: Positive: Strength Intact, ROM Intact Neurological: Positive: Alert, Muscle Tone Normal Psychological: Positive: Normal Response To Family, Age Appropriate Behavior Skin Exam: Normal Throat Pain/Nasal Course/Dx - Course Course Of Treatment: We'll treat for a secondary bacterial infection after an influenza illness. Also patient reports that Robitussin codeine does help with her symptoms of a cough. Patient's to get reevaluated if not improving or worse. - Differential Dx/Diagnosis Provider Diagnosis: Sinusitis, Cough Discharge ED - Sign-Out/Discharge Documenting (check all that apply): Patient Departure All imaging exams completed and their final reports reviewed: No Studies - Discharge Plan Condition: Stable Disposition: HOME Prescriptions: Amoxicillin/Clavulanate TAB* [Augmentin TAB 875*] 875 mg PO BID #20 tab guaiFENesin/CODIENE 100mg/10mg [Robitussin AC 100Mg/10Mg in 5 ml] 10 ml PO Q4H PRN #180 ml MDD 60ml PRN Reason: Cough Patient Education Materials: Sinusitis (ED), Acute Cough (ED) Forms: *Work Release Referrals: Davey Toney DO [Primary Care Provider] - Additional Instructions: FOLLOW UP WITH YOUR DOCTOR IF NOT COMPLETELY IMPROVED. GET REEVALUATED SOONER IF NOT IMPROVED OR WORSE OR ANY QUESTIONS OR CONCERNS. - Billing Disposition and Condition Condition: STABLE Disposition: Home
== END 2019-06-25 20:43 | disposition home or self-care (01) ==
LOC: UCCORT 19:24
DX: J32.9 Chronic sinusitis, unspecified (principal); R05 Cough; E11.9 Type 2 diabetes mellitus without complications; E03.9 Hypothyroidism, unspecified; Z88.6 Allergy status to analgesic agent; Z88.1 Allergy status to other antibiotic agents; Z88.2 Allergy status to sulfonamides; Z79.84 Long term (current) use of oral hypoglycemic drugs; Z79.890 Hormone replacement therapy
CPT/HCPCS: 99212; G0463